=== PATIENT | male | born 1970 | race Caucasian/White ===

== ENCOUNTER 2017-01-17 12:39 | Emergency (ER) | payer SELFPAY ==
[~2017-01-17] VITALS: Ht 177.8 cm; Wt 113.4 kg
[~2017-01-17 12:39] MED LIST: DICL50TA4 PO; HYDR-229 PO
[2017-01-17] MEDS ORDERED: fentaNYL INJECTION 100 MCG/2 ML AMP ONE ×2 (12:42→16:05)
--- OUTSIDE RECORDS SUMMARY | 2017-01-17 12:43 | XMS REPORT ---
Author MINNA Jimenez [facility] eClinicalWorks Address Unknown Phone Unavailable Care Team Providers Care Capital Markets Specialist Name Role Phone MINNA CLAYTON CP Unavailable Allergies, Adverse Reactions, Alerts Substance Reaction Event Type N.K.D.A. 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 Assessment Routine adult health maintenance Z00.00 Active Assessment Elevated blood pressure reading without diagnosis of hypertension R03.0 Active Medications Medication Code System Code Instructions Start Date End Date Status Dosage PredniSONE [facility] [address]-61 20 MG Orally Once a day Dec 09, 2014 Dec 14, 2014 1 tablet with food or milk Procedures Procedure Coding System Code Date Office Visit, Est Pt., Level 4 CPT-4 66656 Dec 09, 2014 Vital Signs Date/Time: Dec 09, 2014 Temperature 98.3 F Weight 252.7 lbs Height 69 in BMI 37.31 Index Blood Pressure Diastolic 84 mmHg Blood Pressure Systolic 152 mmHg Cardiac Monitoring Heart Rate 76 bpm Results No Known Results Summary Purpose eClinicalWorks Submission
[2017-01-17] MEDS ORDERED: NS IV 500 ML 500 ML IV ONE (12:44)
--- OUTSIDE RECORDS SUMMARY | 2017-01-17 12:44 | XMS REPORT ---
Author MINNA Jimenez [facility] eClinicalWorks Address Unknown Phone Unavailable Care Team Providers Care Tong Carrier Name Role Phone MINNA CLAYTON CP Unavailable Allergies, Adverse Reactions, Alerts Substance Reaction Event Type N.K.D.A. 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 Assessment Skin rash R21 Active Medications Medication Code System Code Instructions Start Date End Date Status Dosage Triamcinolone Acetonide [facility] [address]-22 0.1 % Externally Twice a day Jan 08, 2015 1 application to affected area Nystatin [facility] [address]-41 218578 UNIT/GM Externally Twice a day Jan 08, 2015 Feb 05, 2015 1 application to affected area Procedures Procedure Coding System Code Date Office Visit, Est Pt., Level 3 CPT-4 28890 Jan 08, 2015 Vital Signs Date/Time: Jan 08, 2015 Temperature 97.6 F Weight 254.3 lbs Height 69 in BMI 37.55 Index Blood Pressure Diastolic 90 mmHg Blood Pressure Systolic 124 mmHg Cardiac Monitoring Heart Rate 72 bpm Results No Known Results Summary Purpose eClinicalWorks Submission
--- OUTSIDE RECORDS SUMMARY | 2017-01-17 12:44 | XMS REPORT ---
Author Author Augustine Mederos [facility] Address [address] [facility] [address], [place] [id number] Care Team Providers Care Audio Visual Director Name Role Phone Augustine Mederos PCP Unavailable Allergies and Adverse Reactions Name Reaction Notes NO KNOWN DRUG ALLERGIES Plan of Treatment Planned Activity Comments Planned Date Planned Time Plan/Goal Semen analysis, presence and motility of sperm 08/24/2016 12:00 AM Medications Not available. Problem List Description Status Onset Consultation for sterilization Active 06/15/2016 Vital Signs Date Time BP-Sys(mm[Hg] BP-Brenda(mm[Hg]) HR(bpm) RR(rpm) Temp WT HT HC BMI BSA BMI Percentile O2 Sat(%) 08/24/2016 11:36:00 AM 250 lbs 69 in 36.92 kg/m2 2.35 m2 06/15/2016 8:32:00 AM 132 mmHg 92 mmHg 64 bpm 16 rpm 97.3 F 250 lbs 69 in 36.9182 kg/m 2.3496 m 97 % 01/01/2015 10:30:00 AM 250 lbs 69 in 36.92 kg/m2 2.35 m2 Social History Name Description Comments Tobacco Never smoker Alcohol Current - status unknown Caffeine Current every day History of Procedures Date Ordered Description Order Status 06/15/2016 10:23 AM URINALYSIS AUTO W/O SCOPE Reviewed Results Summary Date and Description Results 06/15/2016 12:00 AM Clarity Ur CLEAR Color Ur ---- Glucose Ur-sCnc -VE Bilirub Ur Ql Strip -VE Ketones Ur Ql Strip -VE Sp Gr Ur Qn 1015 Hgb Ur Ql Strip -VE pH Ur-LsCnc 6.0 Prot Ur Ql Strip -VE Urobilinogen Ur-mCnc -VE Nitrite Ur Ql Strip - VE WBC Est Ur Ql Strip -VE 06/15/2016 10:23 AM Clarity Ur CLEAR Color Ur ---- Glucose Ur-sCnc -VE Bilirub Ur Ql Strip -VE Ketones Ur Ql Strip -VE Sp Gr Ur Qn 1015 Hgb Ur Ql Strip -VE pH Ur-LsCnc 6.0 Prot Ur Ql Strip -VE Urobilinogen Ur-mCnc -VE Nitrite Ur Ql Strip - VE WBC Est Ur Ql Strip -VE History Of Immunizations Not available. History of Past Illness Name Date of Onset Comments HEADACHES Kidney stone Consultation for sterilization 06/15/2016 Consultation for sterilization Jun 15 2016 8:36AM Consultation for sterilization Jun 30 2016 2:21PM Vasectomy evaluation Aug 24 2016 11:43AM Payers Not available. History of Encounters Visit Date Visit Type Provider 08/24/2016 Office visit V Mary Mederos MD 07/19/2016 Surgery V Mary Mederos MD 06/15/2016 Office visit V Mary Mederos MD 01/01/2015 Office visit V Mary Mederos MD
--- OUTSIDE RECORDS SUMMARY | 2017-01-17 12:44 | XMS REPORT ---
Author Author Augustine Mederos [facility] Address [address] [facility] [address] [place], [place] [id number] Care Team Providers Care Sexual Assault Counsellor Name Role Phone Augustine Mederos PCP Unavailable Allergies and Adverse Reactions Name Reaction Notes NO KNOWN DRUG ALLERGIES Plan of Treatment Planned Activity Comments Planned Date Planned Time Plan/Goal Semen analysis, presence and motility of sperm 08/24/2016 12:00 AM Medications Not available. Problem List Description Status Onset Consultation for sterilization Active 06/15/2016 Encounter for postvasectomy sperm count Active 08/24/2016 Painful ejaculation Active 08/24/2016 Vital Signs Date Time BP-Sys(mm[Hg] BP-Brenda(mm[Hg]) HR(bpm) [...] HEADACHES Kidney stone Consultation for sterilization 06/15/2016 Encounter for postvasectomy sperm count 08/24/2016 Painful ejaculation 08/24/2016 Consultation for sterilization Jun 15 2016 8:36AM Consultation for sterilization Jun 30 2016 2:21PM Vasectomy evaluation Aug 24 2016 11:43AM Encounter for postvasectomy sperm count Aug 24 2016 11:38AM Painful ejaculation Aug 24 2016 11:38AM Payers Not available. History of Encounters Visit Date Visit Type Provider 08/24/2016 Office visit V Mary Mederos MD 07/19/2016 Surgery V Mary Mederos MD 06/15/2016 Office visit V Mary Mederos MD 01/01/2015 Office visit V Mary Mederos MD
--- OUTSIDE RECORDS SUMMARY | 2017-01-17 12:44 | XMS REPORT ---
Author Author Augustine Mederos [facility] Address [address] [facility] [address] [place], [place] [id number] Care Team Providers Care Lime Sludge Kiln Operator Name Role Phone Augustine Mederos PCP Unavailable Allergies and Adverse Reactions Name Reaction Notes NO KNOWN DRUG ALLERGIES Plan of Treatment Planned Activity Comments Planned Date Planned Time Plan/Goal Semen analysis, presence and motility of sperm 08/24/2016 12:00 AM Medications Not available. Problem List Description Status Onset Consultation for sterilization Active 06/15/2016 Encounter for postvasectomy sperm count Active 08/24/2016 Painful ejaculation Active 08/24/2016 Pain with ejaculation Active 09/08/2016 Vital Signs Date Time BP-Sys(mm[Hg] BP-Brenda(mm[Hg]) HR(bpm) RR(rpm) Temp WT HT HC BMI BSA BMI Percentile O2 Sat(%) 09/08/2016 10:49:00 AM 130 mmHg 88 mmHg 61 bpm 16 rpm 97.3 F 255 lbs 69 in 37.66 kg/m2 2.37 m2 97 % 08/24/2016 11:36:00 AM 250 lbs 69 in 36.9182 kg/m 2.3496 m 06/15/2016 8:32:00 AM 132 mmHg 92 mmHg 64 bpm 16 rpm 97.3 F 250 lbs 69 in 36.92 kg/m2 2.35 m2 97 % 01/01/2015 10:30:00 AM 250 lbs 69 in 36.9182 kg/m 2.3496 m Social History Name Description Comments Tobacco Never [...] postvasectomy sperm count 08/24/2016 Painful ejaculation 08/24/2016 Pain with ejaculation 09/08/2016 Consultation for sterilization Jun 15 2016 8:36AM Consultation for sterilization Jun 30 2016 2:21PM Vasectomy evaluation Aug 24 2016 11:43AM Encounter for postvasectomy sperm count Aug 24 2016 11:38AM Painful ejaculation Aug 24 2016 11:38AM Pain with ejaculation Sep 08 2016 10:52AM Encounter for postvasectomy sperm count Sep 08 2016 10:52AM Payers Not available. History of Encounters Visit Date Visit Type Provider 09/08/2016 Office visit V Mary Mederos MD 08/24/2016 Office visit V Mary Mederos MD 07/19/2016 Surgery V Mary Mederos MD 06/15/2016 Office visit V Mary Mederos MD 01/01/2015 Office visit V Mary Mederos MD
--- OUTSIDE RECORDS SUMMARY | 2017-01-17 12:44 | XMS REPORT ---
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
--- OUTSIDE RECORDS SUMMARY | 2017-01-17 12:44 | XMS REPORT ---
Author Author Augustine Mederos Organization [facility] Address [address] [facility] [address] [place], [place] [id number] Care Team Providers Care Physical Optics Teacher Name Role Phone Augustine Mederos PCP Unavailable Allergies and Adverse Reactions Name Reaction Notes NO KNOWN DRUG ALLERGIES Plan of Treatment Not available. Medications Not available. Problem List Description Status Onset Consultation for sterilization Active 06/15/2016 Vital Signs Date Time BP-Sys(mm[Hg] BP-Brenda(mm[Hg]) HR(bpm) RR(rpm) Temp WT HT HC BMI BSA BMI Percentile O2 Sat(%) 06/15/2016 8:32:00 AM 132 mmHg 92 mmHg 64 bpm 16 rpm 97.3 F 250 lbs 69 in 36.92 kg/m2 2.35 m2 97 % 01/01/2015 10:30:00 AM 250 lbs 69 in 36.92 kg/m2 2.3496 m Social History Name Description Comments Tobacco Never smoker Alcohol Current - status unknown Caffeine Current every day History of Procedures Date Ordered Description Order Status 06/15/2016 10:23 AM URINALYSIS AUTO W/O SCOPE Reviewed Results Summary Data and Description Results 06/15/2016 10:23 AM Clarity Ur CLEAR Color [...] Consultation for sterilization Jun 15 2016 8:36AM Payers Not available. History of Encounters Visit Date Visit Type Provider 06/15/2016 Office visit Augustine Mederos MD 01/01/2015 Office visit Augustine Mederos MD
--- OUTSIDE RECORDS SUMMARY | 2017-01-17 12:44 | XMS REPORT ---
Author Author Augustine Mederos Organization [facility] Address [address] [facility] [address] [place], [place] [phone] Care Team Providers Care Surveillance Operator Name Role Phone Augustine Mederos PCP [...] Consultation for sterilization Jun 30 2016 2:21PM Payers Not available. History of Encounters Visit Date Visit Type Provider 06/15/2016 Office visit V Mary Mederos MD 01/01/2015 Office visit V Mary Mederos MD
--- OUTSIDE RECORDS SUMMARY | 2017-01-17 12:44 | XMS REPORT ---
Author Author Augustine Mederos Organization [facility] Address [address] [facility] [address] [place], [place] [id number] Care Team Providers Care Meat Selector Name Role Phone Augustine Mederos PCP Unavailable [...]
--- OUTSIDE RECORDS SUMMARY | 2017-01-17 12:44 | XMS REPORT ---
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
[2017-01-17] MEDS ORDERED: fentaNYL INJECTION 100 MCG/2 ML AMP IM ONE (12:45)
--- OUTSIDE RECORDS SUMMARY | 2017-01-17 12:45 | XMS REPORT | Continuity of Care Document ---
Author Author [facility] Address Unknown Phone Unavailable Allergies Active Description Code Type Severity Reaction Onset Reported/Identified Relationship to Patient Clinical Status Yes No Known Drug Allergies [id number] Drug Allergy Mild N/A 08/02/2008 Medications Problems Date Dx Coded Attending Type Code Diagnosis Diagnosed By 12/29/2009 Ot 592.1 12/29/2009 Ot 788.0 12/29/2009 Ot 789.09 07/22/2010 719.41 PAIN IN JOINT INVOLVING SHOULDER REGION 07/22/2010 729.5 PAIN IN LIMB 07/22/2010 923.03 CONTUSION OF UPPER ARM 07/22/2010 JOSHUA CORDOBA DO 719.41 PAIN IN JOINT INVOLVING SHOULDER REGION 07/22/2010 JOSHUA CORDOBA DO 729.5 PAIN IN LIMB 07/22/2010 JOSHUA CORDOBA DO 923.03 CONTUSION OF UPPER ARM 07/22/2010 CHERIE CORONEL APRN 719.41 PAIN IN JOINT INVOLVING SHOULDER REGION 07/22/2010 CHERIE CORONEL APRN L 729.5 PAIN IN LIMB 07/22/2010 CHERIE CORONEL APRN L 923.03 CONTUSION OF UPPER ARM 11/22/2010 Ot 368.2 DIPLOPIA 11/22/2010 Ot 787.02 NAUSEA ALONE 07/29/2011 530.81 ESOPHAGEAL REFLUX 07/29/2011 553.3 DIAPHRAGMATIC HERNIA WITHOUT OBSTRUCTION OR GANGRENE 07/29/2011 709.9 UNSPECIFIED DISORDER OF SKIN AND SUBCUTANEOUS TISSUE 07/29/2011 JOSHUA CORDOBA DO 530.81 ESOPHAGEAL REFLUX 07/29/2011 JOSHUA CORDOBA DO K 553.3 DIAPHRAGMATIC HERNIA WITHOUT OBSTRUCTION OR GANGRENE 07/29/2011 JOSHUA CORDOBA DO 709.9 UNSPECIFIED DISORDER OF SKIN AND SUBCUTANEOUS TISSUE 07/29/2011 CHERIE CORONEL APRN 530.81 ESOPHAGEAL REFLUX 07/29/2011 CHERIE CORONEL APRN 553.3 DIAPHRAGMATIC HERNIA WITHOUT OBSTRUCTION OR GANGRENE 07/29/2011 JUJU CORONEL APRNA L 709.9 UNSPECIFIED DISORDER OF SKIN AND SUBCUTANEOUS TISSUE 11/01/2012 111.0 PITYRIASIS VERSICOLOR 11/01/2012 796.2 ELEVATED BLOOD PRESSURE READING WITHOUT DIAGNOSIS OF HYPERTENSION 11/01/2012 CORDOBA JOSHUA K 111.0 PITYRIASIS VERSICOLOR 11/01/2012 BERYL ORTIZJOSHUA K 796.2 ELEVATED BLOOD PRESSURE READING WITHOUT DIAGNOSIS OF HYPERTENSION 11/01/2012 JUJU CORONEL APRNA L 111.0 PITYRIASIS VERSICOLOR 11/01/2012 JUJU CORONEL APRNA L 796.2 ELEVATED BLOOD PRESSURE READING WITHOUT DIAGNOSIS OF HYPERTENSION 12/15/2012 JOSHUA CORDOBA DO 607.89 OTHER SPECIFIED DISORDERS OF PENIS 12/15/2012 HUILei MINERAL ECONOMISTCHERIE Ferrell 607.89 OTHER SPECIFIED DISORDERS OF PENIS 01/21/2014 HUILei MINERAL ECONOMISTCHARANJITCHERIE L 708.9 UNSPECIFIED URTICARIA 03/15/2014 LILIAN LEW DO Ot 845.00 SPRAIN OF ANKLE NOS 03/15/2014 LILIAN LEW DO Ot 959.7 LOWER LEG INJURY NOS 03/15/2014 LILIAN LEW DO Ot E000.8 OTHER EXTERNAL CAUSE STATUS 03/15/2014 LILIAN LEW DO Ot E849.0 ACCIDENT IN HOME 03/15/2014 LILIAN LEW DO Ot E883.9 FALL INTO OTHER HOLE Procedures Code Description [place] [address] ROUTINE VENIPUNCTURE 12/15/2012 35741 [facility]PHILLIS-[facility] 12/15/2012 22022 GC/CHLAM URINE (STATE) 12/15/2012 Results Encounters ACCT No. Visit Date/Time Discharge Status Pt. Type Provider Facility Loc./Unit Complaint [id number] 01/21/2014 08:35:00 01/21/2014 23: 59:59 CLS Outpatient HUILei MINERAL ECONOMISTCHERIE Ferrell [id number] 12/15/2012 13:36:00 12/15/2012 23: 59:59 CLS Outpatient JOSHUA CORDOBA DO [id number] 11/01/2012 16:32:00 Document Registration [id number] 03/15/2014 04:28:00 2014 05:23:00 DIS Emergency LILIAN LEW DO [facility] ER [id number] 11/21/2010 20:03:00 Document Registration [id number] 12/29/2009 16:35:00 Document Registration [id number] 09/08/2016 11:38:42 09/08/2016 23: 59:59 CLS Outpatient Rosa M, V S [id number] 08/24/2016 12:18:56 08/24/2016 23: 59:59 CLS Outpatient Rosa M, V S [id number] 07/20/2016 12:02:41 07/20/2016 23: 59:59 CLS Outpatient Rosa M, V S [id number] 06/15/2016 09:24:05 06/15/2016 23: 59:59 CLS Outpatient Rosa M, V S [id number] 01/01/2015 10:57:03 01/01/2015 23: 59:59 CLS Outpatient Rosa M, V S
--- NOTE | 2017-01-17 12:51 | ED Upper Extremity ---
General Stated Complaint: LEFT THUMB INJURY Source: patient, spouse Exam Limitations: no limitations History of Present Illness Time seen by provider: 12:44 Initial Comments Patient has ER by private conveyance with a chief complaint that about 20 minutes ago he smashed his left thumb against the wood splitter. He's previously injured this hand a long time ago with a laceration stab to the forearm and cut the thumb nail off with a machete on accident. These wounds long since healed. He has had a tetanus shot in the last 5 years. He has not had anything for pain yet. He did not pass out. He still has sensation all the way down to his last knuckle of his thumb. Allergies and Home Medications Allergies Coded Allergies: No Known Drug Allergies (Unverified , 08/02/08) Home Medications Diclofenac Potassium 50 Mg Tablet, 50 MG PO Q8H PRN for ankle pain, #30 Ref 0 Prescribed by: LILIAN LEW on 03/15/14 0516 Hydrocodone Bit/Acetaminophen 1 Each Tablet, 1 EACH PO Q 4 - 6 HRS PRN, #10 Ref 0 Prescribed by: SHERMAN RANDALL on 12/29/092047 Constitutional: No chills, No diaphoresis, No fever, No malaise EENTM: No ear discharge, No ear pain Respiratory: No cough, No short of breath Cardiovascular: No chest pain, No palpitations Gastrointestinal: No abdominal pain, No constipation, No diarrhea Genitourinary: No discharge, No dysuria Musculoskeletal: see HPI Skin: see HPI Past Kzdnmnk-Uradkv-Vmbvtx Hx Reproductive System Hx Reproductive Disorders: No Sexually Transmitted Disease: No Physical Exam Vital Signs Vital Sign - Last 12Hours 01/17/17 12:40 Temp 97.4 Pulse 84 Resp 18 B/P (MAP) 137/91 (106) Pulse Ox 99 Capillary Refill : General Appearance: WD/WN, moderate distress HEENT: PERRL/EOMI, pharynx normal Cardiovascular: regular rate, rhythm, no edema Gastrointestinal: non tender, soft Shoulder: normal inspection, no evidence of injury Elbow/Forearm: normal inspection, no evidence of injury Wrist: Yes normal inspection, Yes no evidence of injury Hand: Left, nail injury, swelling (crush injury to the distal phalanx of the left thumb) Neurologic/Tendon: normal motor functions, responds to pain, other (sensation to distal interphalangeal joint. Tendon is difficult to assess and probably disrupted given his inability to move that distal phalanx and the extent of the injury.) Neurologic/Psychiatric: alert, oriented x 3 Skin: normal color, warm/dry Progress/Results/Core Measures Results/Orders Lab Results Laboratory Tests Test 01/17/17 14:10 Range/Units White Blood Count 10.8 4.3-11.0 10^3/uL Red Blood Count 4.94 4.35-5.85 10^6/uL Hemoglobin 14.4 13.3-17.7 G/DL Hematocrit 42 40-54 % Mean Corpuscular Volume 85 80-99 FL Mean Corpuscular Hemoglobin 29 25-34 PG Mean Corpuscular Hemoglobin Concent 34 32-36 G/DL Red Cell Distribution Width 12.7 10.0-14.5 % Platelet Count 213 130-400 10^3/uL Mean Platelet Volume 12.1 H 7.4-10.4 FL Neutrophils (%) (Auto) 77 H 42-75 % Lymphocytes (%) (Auto) 15 12-44 % Monocytes (%) (Auto) 6 0-12 % Eosinophils (%) (Auto) 1 0-10 % Basophils (%) (Auto) 1 0-10 % Neutrophils # (Auto) 8.3 H 1.8-7.8 X 10^3 Lymphocytes # (Auto) 1.6 1.0-4.0 X 10^3 Monocytes # (Auto) 0.7 0.0-1.0 X 10^3 Eosinophils # (Auto) 0.1 0.0-0.3 10^3/uL Basophils # (Auto) 0.1 0.0-0.1 10^3/uL Sodium Level 140 135-145 MMOL/L Potassium Level 4.2 3.6-5.0 MMOL/L Chloride Level 109 H 98-107 MMOL/L Carbon Dioxide Level 24 21-32 MMOL/L Anion Gap 7 5-14 MMOL/L Blood Urea Nitrogen 12 7-18 MG/DL Creatinine 1.28 0.60-1.30 MG/DL Estimat Glomerular Filtration Rate > 60 BUN/Creatinine Ratio 9 Glucose Level 114 H 70-105 MG/DL Calcium Level 8.8 8.5-10.1 MG/DL Total Bilirubin 0.4 0.1-1.0 MG/DL Aspartate Amino Transf (AST/SGOT) 23 5-34 U/L Alanine Aminotransferase (ALT/SGPT) 32 0-55 U/L Alkaline Phosphatase 69 40-136 U/L Total Protein 6.9 6.4-8.2 GM/DL Albumin 4.1 3.2-4.5 GM/DL My Orders Orders - GREGG CELIS Luh Fentanyl Injection (Sublimaze Injection (01/17/17 12:42) Cbc With Automated Diff (01/17/17 12:44) Comprehensive Metabolic Panel (01/17/17 12:44) Finger(S) (01/17/17 12:44) Saline Lock/Iv-Start (01/17/17 12:44) Ns Iv 500 Ml (Sodium Chloride 0.9%) (01/17/17 12:44) Fentanyl Injection (Sublimaze Injection (01/17/17 12:45) Fentanyl Injection (Sublimaze Injection (01/17/17 13:15) Fentanyl Injection (Sublimaze Injection (01/17/17 13:15) Cefazolin Injection (Ancef Injection) (01/17/17 14:30) Medications Given in ED Current Medications Medications Dose Ordered Sig/Benton Route Start Time Stop Time Status Last Admin Dose Admin Cefazolin Sodium 1000 mg/Sodium Chloride 50 ml @ 100 mls/hr ONCE ONCE IV 01/17/17 14:30 01/17/17 14:59 DC 01/17/17 15:00 100 MLS/HR Fentanyl Citrate 100 mcg ONCE ONCE IVP 01/17/17 13:15 01/17/17 13:17 DC 01/17/17 13:28 100 MCG Fentanyl Citrate 100 mcg STK-MED ONCE .ROUTE 01/17/17 12:42 01/17/17 12:45 DC 01/17/17 12:46 50 MCG Sodium Chloride 500 ml @ 0 mls/hr Q0M ONCE IV 01/17/17 12:44 01/17/17 12:46 DC 01/17/17 13:41 500 MLS/HR Vital Signs/I&O Vital Sign - Last 12Hours 01/17/17 12:40 Temp 97.4 Pulse 84 Resp 18 B/P (MAP) 137/91 (106) Pulse Ox 99 Progress Note : Time: 12:50 Progress Note Hand x-ray pain management, fluids and antibiotics. Diagnostic Imaging Diagonstic Imaging: Xray Plain Films/CT/US/NM/MRI: hand (left) Comments Distal phalanx of the left first thumb with comminuted fracture longitudinally of the distal portion and comminuted fracture through the articular surface of the proximal portion. Nondisplaced. Reviewed: Reviewed by Me Consults Consults : Consulting Physician: DONTA JAMES MD Consults Notes Discussed imaging and findings and he says he will come see the patient since he 's done in surgery. 1530: Dr. JAMES has now examined the patient, imaging and labs and will get the patient in with Dr. WALDROP tomorrow morning at 10 and nothing by mouth status to do hand surgery. He would like us to give him some kind of narcotic to control his pain and do a good washout. He agrees with the Anc at this time. Departure Impression Impression: Primary Impression: Crushing injury of thumb, left Qualified Codes: S67.02XA - Crushing injury of left thumb, initial encounter Additional Impression: Fracture of thumb, left, open Qualified Codes: S62.525B - Nondisplaced fracture of distal phalanx of left thumb, initial encounter for open fracture Disposition: 01 HOME, SELF-CARE Condition: Improved Departure-Patient Inst. Decision time for Depature: 15:57 Referrals: NO,LOCAL PHYSICIAN (PCP/Family) Primary Care Physician Patient Instructions: Finger Fracture (DC) Add. Discharge Instructions: Go home get some rest drink plenty fluids and do not eat or drink after midnight tonight. Plan on showing up at [address] [place] [address] [address] in [place] with Dr. WALDROP by 10 AM. The hand surgeon will take care of your thumb at that time. If you're having pain you may take one to 2 tablets of oxycodone every 6 hours as needed. Oxycodone will cause constipation so you should probably oyster picker some MiraLAX at the same time to help keep your bowels moving use one capful in a glass of water daily or more frequently if you become constipated. Oxycodone can cause drowsiness as well as well so no driving or operating machinery. Keep a gauze dressing applied around your thumb at all times and change it as needed for soiling or at least daily. Scripts Oxycodone HCl/Acetaminophen (Oxycodone-Acetaminophen 10-325) 1 Each Tablet 1-2 EACH PO Q6H Y for BREAKTHROUGH PAIN for 7 Days, #30 TAB 0 Refills Prov: GREGG CELIS 01/17/17 Work/School Note: Work Release Form Date Seen in the Emergency Department: Jan 17, 2017 Return to Work: Jan 19, 2017 Restrictions: No Restrictions Copy Copies To 1: CLINT WALDROP DO Copies To 2: DONTA JAMES MD, TITUS J Jan 17, 2017 12:50
[2017-01-17] MEDS ORDERED: fentaNYL INJECTION 100 MCG/2 ML AMP IVP ONE ×3 (13:15→16:15)
[2017-01-17 14:17] LABS: BASOPHILS # (AUTO) 0.1 10^3/uL (0.0-0.1); BASOPHILS % (AUTO) 1 % (0-10); EOSINOPHILS # (AUTO) 0.1 10^3/uL (0.0-0.3); EOSINOPHILS % (AUTO) 1 % (0-10); LYMPHOCYTES # (AUTO) 1.6 X 10^3 (1.0-4.0); LYMPHOCYTES % (AUTO) 15 % (12-44); MEAN CORPUSCULAR HEMOGLOBIN 29 PG (25-34); MEAN CORPUSCULAR HGB CONC 34 G/DL (32-36); MEAN CORPUSCULAR VOLUME 85 FL (80-99); MEAN PLATELET VOLUME 12.1 FL (7.4-10.4); MONOCYTES # (AUTO) 0.7 X 10^3 (0.0-1.0); MONOCYTES % (AUTO) 6 % (0-12); NEUTROPHILS # (AUTO) 8.3 X 10^3 (1.8-7.8); NEUTROPHILS % (AUTO) 77 % (42-75); PLATELET COUNT 213 10^3/uL (130-400); RED BLOOD COUNT 4.94 10^6/uL (4.35-5.85); RED CELL DISTRIBUTION WIDTH 12.7 % (10.0-14.5); WHITE BLOOD COUNT 10.8 10^3/uL (4.3-11.0)
[2017-01-17] MEDS ORDERED: ceFAZolin INJECTION 1,000 MG in NS (IVPB) 50 ML IV ONE (14:30)
[2017-01-17 14:38] LABS: ALANINE AMINOTRANSFERASE 32 U/L (0-55); ALBUMIN 4.1 GM/DL (3.2-4.5); ANION GAP 7 MMOL/L (5-14); ASPARTATE AMINO TRANSFERASE 23 U/L (5-34); BILIRUBIN,TOTAL 0.4 MG/DL (0.1-1.0); BLOOD UREA NITROGEN 12 MG/DL (7-18); BUN/CREATININE RATIO 9; CALCIUM 8.8 MG/DL (8.5-10.1); CARBON DIOXIDE 24 MMOL/L (21-32); CHLORIDE 109 MMOL/L (98-107); CREATININE SERUM 1.28 MG/DL (0.60-1.30); GFR ESTIMATED > 60; GLUCOSE 114 MG/DL (70-105); POTASSIUM 4.2 MMOL/L (3.6-5.0); SODIUM 140 MMOL/L (135-145); TOTAL PROTEIN 6.9 GM/DL (6.4-8.2)
--- NOTE | 2017-01-17 15:53 | Diagnostic Imaging Report ---
Three views of the fingers. INDICATION: Thumb caught in a wood splitter. FINDINGS: There is comminuted fracture with intra-articular extension involving the distal phalanx of the thumb. There is displacement in a dorsal direction involving the base of the distal phalanx seen on the lateral projection. No radiopaque foreign body seen. IMPRESSION: Comminuted fracture involving the distal phalanx of the thumb extending to the interphalangeal joint. There is a dorsally displaced fragment along the base of the distal phalanx. Dictated by: Dictated on workstation # [id number]
[2017-01-17] MEDS ORDERED: OXYC-465 PO (16:00)
[2017-01-17 16:15] VITALS: BP 137/91
== END 2017-01-17 16:15 | disposition home or self-care (01) ==
LOC: EDUNIT# 12:39 → ER 12:40
DX: S62.525B Nondisplaced fracture of distal phalanx of left thumb, initial encounter for open fracture (principal); S62.515B Nondisplaced fracture of proximal phalanx of left thumb, initial encounter for open fracture; W31.2XXA Contact with powered woodworking and forming machines, initial encounter
CPT/HCPCS: 36415; 73140; 80053; 85025

== ENCOUNTER 2018-10-16 21:13 | Emergency (ER) | payer SELFPAY ==
[~2018-10-16] VITALS: Ht 177.8 cm; Wt 117.9 kg
[~2018-10-16 21:13] MED LIST changes: +OXYC-465 PO
[2018-10-16] MEDS ORDERED: NS IV 1000 ML 1,000 ML ONE (21:18)
[2018-10-16] MEDS ORDERED: ACETAMINOPHEN 500 MG TAB (TYLENOL) ONE (21:19)
[2018-10-16] MEDS ORDERED: NS IV 1000 ML 1,000 ML IV SCH (21:27)
[2018-10-16] MEDS ORDERED: ACETAMINOPHEN 500 MG TAB (TYLENOL) PO ONE (21:30)
[2018-10-16 21:45] LABS: BASOPHILS % (AUTO) 0 % (0-10); EOSINOPHILS # (AUTO) 0.3 10^3/uL (0.0-0.3); EOSINOPHILS % (AUTO) 2 % (0-10); HEMATOCRIT 43 % (40-54); LYMPHOCYTES # (AUTO) 1.1 X 10^3 (1.0-4.0); LYMPHOCYTES % (AUTO) 8 % (12-44); MEAN CORPUSCULAR HEMOGLOBIN 29 PG (25-34); MEAN CORPUSCULAR HGB CONC 35 G/DL (32-36); MEAN CORPUSCULAR VOLUME 83 FL (80-99); MEAN PLATELET VOLUME 12.4 FL (7.4-10.4); MONOCYTES # (AUTO) 1.6 X 10^3 (0.0-1.0); MONOCYTES % (AUTO) 12 % (0-12); NEUTROPHILS # (AUTO) 10.8 X 10^3 (1.8-7.8); NEUTROPHILS % (AUTO) 78 % (42-75); PLATELET COUNT 217 10^3/uL (130-400); RED CELL DISTRIBUTION WIDTH 12.4 % (10.0-14.5); WHITE BLOOD COUNT 13.8 10^3/uL (4.3-11.0)
[2018-10-16 21:58] LABS: ALBUMIN 4.4 GM/DL (3.2-4.5); BILIRUBIN,TOTAL 0.5 MG/DL (0.1-1.0); CALCIUM 9.3 MG/DL (8.5-10.1); CREATININE SERUM 1.36 MG/DL (0.60-1.30); POTASSIUM 3.9 MMOL/L (3.6-5.0); TOTAL PROTEIN 7.8 GM/DL (6.4-8.2)
--- NOTE | 2018-10-16 22:00 | Diagnostic Imaging Report ---
INDICATION: Short of air and cough FINDINGS: Upright chest shows normal heart size and vascularity. The lungs are clear. There is no effusion or pneumothorax. IMPRESSION: No acute abnormality is seen. Dictated by: Dictated on workstation # [id number]
[2018-10-16] MEDS ORDERED: LACTATED RINGERS 1,000 ML IV ONE (22:23)
[2018-10-16 22:33] LABS: BILIRUBIN,URINE NEGATIVE (NEGATIVE); CLARITY,URINE CLEAR; COLOR,URINE AMBER; GLUCOSE, URINE (UA) NEGATIVE (NEGATIVE); KETONES,URINE NEGATIVE (NEGATIVE); LEUKOCYTE ESTERASE ,URINE 1+ (NEGATIVE); NITRITE,URINE NEGATIVE (NEGATIVE); PH,URINE 6 (5-9); PROTEIN,URINE 2+ (NEGATIVE); UROBILINOGEN,URINE NORMAL (NORMAL)
[2018-10-16 22:44] LABS: BACTERIA,URINE NEGATIVE /HPF; RBC,URINE RARE /HPF; SQUAMOUS EPITHELIAL CELL,UR RARE /HPF; WBC,URINE RARE /HPF
--- NOTE | 2018-10-16 22:53 | ED General ---
General Chief Complaint: Fever-Adult/Adol Stated Complaint: HEADACHE,FEVER,TREMORS, LOSS OF VISION Nursing Triage Note: PT AMB TO RM 8 WITH COMPLAINT OF FEVER, HEADACHE, FOR THREE DAYS. Nursing Sepsis Screen: No Definite Risk Source of Information: Patient, Family Exam Limitations: No Limitations History of Present Illness Date Seen by Provider: Oct 16, 2018 Time Seen by Provider: 21:18 Initial Comments This 48-year-old gentleman presents to the emergency room with fever, chills, cough, and vomiting for the past 3 days. His significant other states he had sputum that appeared bloody and frothy today. She had given him aspirin 650 mg, ibuprofen, and essential oils but he continued to feel terrible and have a temperature. Temperature at home was 101.2. Temperature here was 103.4. Patient also complains of a blurry vision when his fever is high. Allergies and Home Medications Allergies Coded Allergies: No Known Drug Allergies (Unverified , 08/02/08) Home Medications Azithromycin 250 Mg Tablet, 250 MG PO DAILY Prescribed by: AMBER GRISSOM on 10/17/18 044 Diclofenac Potassium 50 Mg Tablet, 50 MG PO Q8H PRN for ankle pain Prescribed by: LILIAN LEW on 03/15/14 0516 Hydrocodone Bit/Acetaminophen 1 Each Tablet, 1 EACH PO Q 4 - 6 HRS PRN Prescribed by: SHERMAN RANDALL on 12/29/092047 Ondansetron 4 Mg Tab.rapdis, 4 MG SL Q4H PRN for NAUSEA/VOMITING Prescribed by: AMBER GRISSOM on 10/17/18 0442 Oxycodone HCl/Acetaminophen 1 Each Tablet, 1-2 EACH PO Q6H PRN for BREAKTHROUGH PAIN Prescribed by: GREGG CELIS on 01/17/17 1600 Patient Home Medication List Home Medication List Reviewed: Yes Review of Systems Review of Systems Constitutional: see HPI EENTM: see HPI Respiratory: see HPI Cardiovascular: no symptoms reported Gastrointestinal: see HPI Genitourinary: no symptoms reported Musculoskeletal: no symptoms reported Skin: no symptoms reported Psychiatric/Neurological: See HPI Hematologic/Lymphatic: No Symptoms Reported Immunological/Allergic: no symptoms reported Past Ztasjwz-Gosyqh-Ycihrw Hx Patient Social History Alcohol Use: Denies Use Recreational Drug Use: No Smoking Status: Never a Smoker Recent Foreign Travel: No Contact w/Someone Who Travel: No Recent Infectious Disease Expo: No Recent Hopitalizations: No Physical Abuse: No Sexual Abuse: No Mistreated: No Fear: No Immunizations Up To Date Tetanus Booster (TDap): Less than 5yrs Past Medical History Surgeries: Yes Respiratory: No Cardiac: No Neurological: No Reproductive Disorders: No Sexually Transmitted Disease: No Gastrointestinal: No Musculoskeletal: Yes Gout Endocrine: No Cancer: No Psychosocial: No Integumentary: No Blood Disorders: No Physical Exam-Suspected Sepsis Physical Exam Vital Signs Vital Signs - First Documented 10/16/18 21:19 Temp 103.4 Pulse 106 Resp 20 B/P (MAP) 129/88 (102) Pulse Ox 96 O2 Delivery Room Air Capillary Refill : Less Than 3 Seconds Blood Pressure Mean: 102 Height, Weight, BMI Height: 5'10.00" Weight: 260lbs. oz. 117.279175xi; BMI Method:Stated General Appearance: WD/WN, Moderate Distress, Other (generally ill-appearing) HEENT: PERRL/EOMI, Normal ENT Inspection, Pharynx Normal Neck: Normal Inspection Respiratory: No Accessory Muscle Use, No Respiratory Distress, Crackles (faint crackles in the bases) Cardiovascular: No Edema, No Murmur, Normal Peripheral Pulses, Tachycardia Gastrointestinal: Normal Bowel Sounds, Non Tender, Soft Extremity: Normal Capillary Refill, Normal Inspection, Non Tender, No Calf Tenderness, No Pedal Edema Neurologic/Psychiatric: Alert, Oriented x3, No Motor/Sensory Deficits, Normal Mood/Affect, pharmacy services representative II-XII Norm as Tested Skin: normal color, warm/dry Focused Exam Lactate Level 10/16/18 21:26: Lactic Acid Level 1.82 Lactic Acid Level Progress/Results/Core Measures Suspected Sepsis Recent Fever Within 48 Hours: No Infection Criteria Present: None New/Unexplained Altered Menta: No Sepsis Screen: No Definite Risk SIRS Temperature:103.4 Pulse: 106 Respiratory Rate: 20 Laboratory Tests 10/16/18 21:26: White Blood Count 13.8H Blood Pressure 129 /88 Mean: 102 10/16/18 21:26: Lactic Acid Level 1.82 Laboratory Tests 10/16/18 21:26: Creatinine 1.36H, INR Comment 1.0, Platelet Count 217, Total Bilirubin 0.5 Results/Orders Lab Results Laboratory Tests Test 10/16/18 21:26 10/16/18 22:24 Range/Units White Blood Count 13.8 H 4.3-11.0 10^3/uL Red Blood Count 5.15 4.35-5.85 10^6/uL Hemoglobin 15.0 13.3-17.7 G/DL Hematocrit 43 40-54 % Mean Corpuscular Volume 83 80-99 FL Mean Corpuscular Hemoglobin 29 25-34 PG Mean Corpuscular Hemoglobin Concent 35 32-36 G/DL Red Cell Distribution Width 12.4 10.0-14.5 % Platelet Count 217 130-400 10^3/uL Mean Platelet Volume 12.4 H 7.4-10.4 FL Neutrophils (%) (Auto) 78 H 42-75 % Lymphocytes (%) (Auto) 8 L 12-44 % Monocytes (%) (Auto) 12 0-12 % Eosinophils (%) (Auto) 2 0-10 % Basophils (%) (Auto) 0 0-10 % Neutrophils # (Auto) 10.8 H 1.8-7.8 X 10^3 Lymphocytes # (Auto) 1.1 1.0-4.0 X 10^3 Monocytes # (Auto) 1.6 H 0.0-1.0 X 10^3 Eosinophils # (Auto) 0.3 0.0-0.3 10^3/uL Basophils # (Auto) 0.0 0.0-0.1 10^3/uL Prothrombin Time 14.0 12.2-14.7 SEC INR Comment 1.0 0.8-1.4 Activated Partial Thromboplast Time 32 24-35 SEC Sodium Level 135 135-145 MMOL/L Potassium Level 3.9 3.6-5.0 MMOL/L Chloride Level 100 98-107 MMOL/L Carbon Dioxide Level 21 21-32 MMOL/L Anion Gap 14 5-14 MMOL/L Blood Urea Nitrogen 11 7-18 MG/DL Creatinine 1.36 H 0.60-1.30 MG/DL Estimat Glomerular Filtration Rate 56 BUN/Creatinine Ratio 8 Glucose Level 154 H 70-105 MG/DL Lactic Acid Level 1.82 0.50-2.00 MMOL/L Calcium Level 9.3 8.5-10.1 MG/DL Corrected Calcium 9.0 8.5-10.1 MG/DL Total Bilirubin 0.5 0.1-1.0 MG/DL Aspartate Amino Transf (AST/SGOT) 25 5-34 U/L Alanine Aminotransferase (ALT/SGPT) 30 0-55 U/L Alkaline Phosphatase 89 40-136 U/L C-Reactive Protein High Sensitivity 5.24 H 0.00-0.50 MG/DL Total Protein 7.8 6.4-8.2 GM/DL Albumin 4.4 3.2-4.5 GM/DL Urine Color SETH H Urine Clarity CLEAR Urine pH 6 5-9 Urine Specific [place] 1.010 L 1.016-1.022 Urine Protein 2+ H NEGATIVE Urine Glucose (UA) NEGATIVE NEGATIVE Urine Ketones NEGATIVE NEGATIVE Urine Nitrite NEGATIVE NEGATIVE Urine Bilirubin NEGATIVE NEGATIVE Urine Urobilinogen NORMAL NORMAL MG/DL Urine Leukocyte Esterase 1+ H NEGATIVE Urine RBC (Auto) 1+ H NEGATIVE Urine RBC RARE /HPF Urine WBC RARE /HPF Urine Squamous Epithelial Cells RARE /HPF Urine Crystals NONE /LPF Urine Bacteria NEGATIVE /HPF Urine Casts NONE /LPF Urine Mucus NEGATIVE /LPF Urine Culture Indicated CULTURE PENDING Micro Results Microbiology 10/16/18 Influenza Types A,B Antigen (KENNEY) - Final, Complete My Orders Orders - AMBER RIBEIRO MD Ns Iv 1000 Ml (Sodium Chloride 0.9%) (10/16/18 21:18) Acetaminophen Tablet (Tylenol Tablet) (10/16/18 21:19) Cbc With Automated Diff (10/16/18 21:27) Comprehensive Metabolic Panel (10/16/18 21:27) Blood Culture (10/16/18 21:27) Sputum Culture (10/16/18 21:27) Urinalysis (10/16/18 21:27) Urine Culture (10/16/18 21:27) Protime With Inr (10/16/18 21:27) Partial Thromboplastin Time (10/16/18 21:27) Chest 1 View, Ap/Pa Only (10/16/18 21:27) Ed Iv/Invasive Line Start (10/16/18 21:27) Ed Iv/Invasive Line Start (10/16/18 21:27) Vital Signs Adult Sepsis Patie Q15M (10/16/18 21:27) O2 (10/16/18 21:27) Remove Rings In Anticipation O (10/16/18 21:27) Lactic Acid Analyzer (10/16/18 21:27) Influenza A And B Antigens (10/16/18 21:27) Ns Iv 1000 Ml (Sodium Chloride 0.9%) (10/16/18 21:27) Acetaminophen Tablet (Tylenol Tablet) (10/16/18 21:30) Hs C Reactive Protein (10/16/18 22:15) Lactated Ringers (Lr 1000 Ml Iv Solution (10/16/18 22:23) Chest Pa/Lat (2 View) (10/16/18 22:23) Ceftriaxone For Iv Use (Rocephin For I (10/16/18 23:00) Azithromycin Injection (Zithromax Inject (10/16/18 23:00) Ondansetron Injection (Zofran Injectio (10/17/18 02:46) Ketorolac Injection (Toradol Injection) (10/17/18 02:47) Medications Given in ED Current Medications Medications Dose Ordered Sig/Benton Route Start Time Stop Time Status Last Admin Dose Admin Acetaminophen 1,000 mg ONCE ONCE PO 10/16/18 21:30 10/16/18 21:31 DC 10/16/18 21:31 1,000 MG Azithromycin 500 mg/Sodium Chloride 250 ml @ 250 mls/hr ONCE ONCE IV 10/16/18 23:00 10/16/18 23:59 DC 10/17/18 00:10 250 MLS/HR Ceftriaxone Sodium 1000 mg/ Sterile Water 10 ml @ 200 mls/hr ONCE ONCE IV 10/16/18 23:00 10/16/18 23:02 DC 10/16/18 23:03 200 MLS/HR Ketorolac Tromethamine 30 mg STK-MED ONCE .ROUTE 10/17/18 02:47 10/17/18 02:56 DC 10/17/18 03:00 30 MG Lactated Ringer's 1,000 ml @ 0 mls/hr Q0M ONCE IV 10/16/18 22:23 10/16/18 22:24 DC 10/16/18 22:27 1,000 MLS/HR Ondansetron HCl 4 mg STK-MED ONCE .ROUTE 10/17/18 02:46 10/17/18 02:55 DC 10/17/18 03:00 4 MG Vital Signs/I&O 10/16/18 10/16/18 10/17/18 10/17/18 21:19 23:00 03:00 04:52 Temp 103.4 100.4 102.5 100.3 Pulse 106 106 90 Resp 20 20 20 B/P (MAP) 129/88 (102) 129/88 133/86 (102) Pulse Ox 96 96 96 O2 Delivery Room Air Room Air 10/17/18 00:00 Intake Total 2009 ml Balance 2009 ml Capillary Refill : Less Than 3 Seconds Blood Pressure Mean: 102 Progress Note #1: Time: 22:51 Progress Note Patient is significantly improved after IV fluids and Tylenol. The single view chest x-ray was read as negative by the radiologist. However, there were faint crackles heard on exam. The single view x-ray was followed by 2 view x-ray after IV hydration. There was questionable infiltrate in the left lower lung and in the right infrahilar region. I am uncertain about possible pneumonia. Discussed options with the patient. Admission as an option but [facility] is on diversion at this time. Patient really does not want to be transferred. I offered as an alternative IV antibiotic therapy and monitoring for a few hours to ensure he is stable before definitively determining disposition. Patient would like to choose that option. Rocephin and azithromycin have been ordered. He is presently receiving a second liter of IV fluid. Progress Note #2: Progress Note Patient was monitored for several hours to ensure no worsening of his condition after antibiotic administration. He completed Rocephin and azithromycin. He was additionally treated with Toradol for fever and Zofran for nausea and vomiting. He was dismissed home in improved condition with return precautions. Diagnostic Imaging Diagonstic Imaging: Xray Plain Films/CT/US/NM/MRI: chest Comments Single view chest x-ray viewed by me and report reviewed. See report below: NAME: GEORGINA ESQUIVEL [facility] REC#: [id number] PT STATUS: REG ER : 1970 PHYSICIAN: AMBER RIBEIRO MD ADMIT DATE: 10/16/18/ER Draft Date of Exam:10/16/18 CHEST 1 VIEW, AP/PA ONLY INDICATION: Short of air and cough FINDINGS: Upright chest shows normal heart size and vascularity. The lungs are clear. There is no effusion or pneumothorax. IMPRESSION: No acute abnormality is seen. Dictated on workstation # [id number] Dict: 10/16/18 2158 Trans: 10/16/182199 [facility] [id number] Interpreted by: DELVIS WADDELL MD Diagonstic Imaging: Xray Plain Films/CT/US/NM/MRI: chest Comments Two-view chest x-ray viewed by me. Report not yet available. There is questionable faint infiltrate in the left lower lobe and in the right infrahilar region. Departure Impression Primary Impression: Flu-like symptoms Additional Impressions: Cough Nausea and vomiting Qualified Codes: R11.2 - Nausea with vomiting, unspecified Disposition: HOME, SELF-CARE Condition: Improved Departure-Patient Inst. Decision time for Depature: 04:37 Referrals: NO,LOCAL PHYSICIAN (PCP/Family) Primary Care Physician Patient Instructions: Fever, Adult (DC) Add. Discharge Instructions: Start with a clear liquid diet and gradually advance your diet with small quantities of bland food as tolerated. Complete your antibiotic as prescribed. Take your next dose this evening. You may use the Zofran (ondansetron) as prescribed for nausea or vomiting. These tablets dissolve under the tongue for rapid acting nausea relief. Return to care if you have worsening symptoms. All discharge instructions reviewed with patient and/or family. Voiced understanding. Scripts Ondansetron (Ondansetron Odt) 4 Mg Tab.rapdis 4 MG SL Q4H PRN for NAUSEA/VOMITING, #10 TAB Prov: AMBER RIBEIRO MD 10/17/18 Azithromycin (Azithromycin) 250 Mg Tablet 250 MG PO DAILY, #4 TAB 0 Refills Prov: AMBER RIBEIRO MD 10/17/18 AMBER RIBEIRO MD Oct 16, 2018 22:52
[2018-10-16] MEDS ORDERED: cefTRIAXone FOR IV USE 1,000 MG in WATER (STERILE) FOR INJECTION 10 ML IV ONE (23:00)
[2018-10-16] MEDS ORDERED: AZITHROMYCIN INJECTION 500 MG in NS (IVPB) 250 ML IV ONE (23:00)
--- NOTE | 2018-10-16 23:00 | NUR ---
ASSUMED PRIMARY NURSE ROLE
--- NOTE | 2018-10-17 02:45 | NUR ---
temp assessed tympanically to be 102.5-provider notified
[2018-10-17] MEDS ORDERED: ONDANSETRON 4 MG/2 ML (SDV) Z0FRAN ONE (02:46)
[2018-10-17] MEDS ORDERED: KETOROLAC 30 MG/ML VIAL ONE (02:47)
--- NOTE | 2018-10-17 03:50 | NUR ---
PT TEMP IS NOW 100.3 TYMPANICALLY
[2018-10-17] MEDS ORDERED: ONDA4TAB11 SL (04:42)
[2018-10-17] MEDS ORDERED: AZIT250T12 PO (04:42)
[2018-10-17 04:52] VITALS: BP 133/86
--- NOTE | 2018-10-17 06:22 | Diagnostic Imaging Report ---
PATIENT HISTORY: Shortness of air, cough, congestion. TECHNIQUE: 2 views of the chest COMPARISON: 10/16/2018 FINDINGS: There appears to be mildly increased airspace opacity at the lung bases on the lateral view, likely the left lower lobe. The cardiac silhouette is normal in size. No pleural effusion or pneumothorax is seen. No acute osseous abnormalities seen. IMPRESSION: 1. Mild airspace opacities in the left lower lobe, may represent infection in the appropriate clinical setting. Dictated by: Dictated on workstation # [id number]
== END 2018-10-17 04:54 | disposition home or self-care (01) ==
LOC: EDUNIT# 21:13 → ER 21:15
DX: R05 Cough (principal); R11.2 Nausea with vomiting, unspecified; R50.9 Fever, unspecified
CPT/HCPCS: 36415; 71045; 71046; 80053; 81000; 83605; 85025; 85610; 85730; 86141; 87040; 87088; 87804

== ENCOUNTER 2020-09-09 20:10 | Inpatient (IN) | payer SELFPAY ==
[~2020-09-09] VITALS: Ht 177.8 cm; Wt 109.9 kg
[~2020-09-09 20:10] MED LIST changes: +AZIT250T12 PO; +ONDA4TAB11 SL; -OXYC-465 PO; +OXYC-556 PO
[2020-09-09] MEDS ORDERED: KETOROLAC 30 MG/ML VIAL IVP STA (20:32)
[2020-09-09] MEDS ORDERED: LACTATED RINGERS 1,000 ML IV STA (20:32)
[2020-09-09] MEDS ORDERED: ACETAMINOPHEN 500 MG TAB (TYLENOL) PO STA (20:32)
--- NOTE | 2020-09-09 20:40 | ED General ---
General Chief Complaint: Respiratory Problems Stated Complaint: COVID POSITIVE Source of Information: Patient Exam Limitations: No Limitations History of Present Illness Date Seen by Provider: Sep 09, 2020 Time Seen by Provider: 20:19 Initial Comments Here from home with report of being positive for COVID-19 since the with symptoms starting around the . Tested at [facility]. Has no primary care physician. Has not had infusion antibiotic therapy. is also positive for COVID-19 as well as his three kids. He has not been vaccinated. Reports O2 saturations dropping below 70% with activity at home while monitoring oxygen saturation. He has had nausea, vomiting and diarrhea. Her resting O2 saturation in the 80s. Arrives with O2 sat at 81% while resting. Denies any previous illnesses or surgeries. Denies allergies. Timing/Duration: Other (11 days) Severity: Moderate, Severe Associated Systoms: Cough, Fever/Chills, Loss of Appetite, Malaise, Nausea/Vomiting, Shortness of Air, Weakness Allergies and Home Medications Allergies Coded Allergies: No Known Drug Allergies (Unverified , 08/02/08) Home Medications Azithromycin 250 Mg Tablet, 250 MG PO DAILY Prescribed by: AMBER GRISSOM on 10/17/18 044 Diclofenac Potassium 50 Mg Tablet, 50 MG PO Q8H PRN for ankle pain Prescribed by: LILIAN LEW on 03/15/14 0516 Hydrocodone Bit/Acetaminophen 1 Each Tablet, 1 EACH PO Q 4 - 6 HRS PRN Prescribed by: SHERMAN RANDALL on 12/29/092047 Ondansetron 4 Mg Tab.rapdis, 4 MG SL Q4H PRN for NAUSEA/VOMITING Prescribed by: AMBER GRISSOM on 10/17/18 044 Oxycodone HCl/Acetaminophen 1 Each Tablet, 1-2 EACH PO Q6H PRN for BREAKTHROUGH PAIN Prescribed by: GREGG CELIS on 01/17/17 1600 Patient Home Medication List Home Medication List Reviewed: Yes Review of Systems Review of Systems Constitutional: see HPI, chills, fever, malaise EENTM: nose congestion; No throat pain Respiratory: cough, short of breath Cardiovascular: no symptoms reported Gastrointestinal: see HPI Genitourinary: no symptoms reported Musculoskeletal: muscle pain, muscle weakness Skin: no symptoms reported Psychiatric/Neurological: See HPI All Other Systems Reviewed Negative Unless Noted: Yes Past Fnhyydn-Qxejky-Jiqcxm Hx Patient Social History Tobacco Use?: No Substance use?: No Alcohol Use?: No Immunizations Up To Date Tetanus Booster (TDap): Less than 5yrs Past Medical History Surgeries: Yes Respiratory: No Cardiac: No Neurological: No Reproductive Disorders: No Sexually Transmitted Disease: No Gastrointestinal: No Musculoskeletal: Yes Gout Endocrine: No Cancer: No Psychosocial: No Integumentary: No Blood Disorders: No Family Medical History Reviewed Nursing Family Hx No Pertinent Family Hx Physical Exam-Suspected Sepsis Physical Exam Vital Signs Vital Signs - First Documented Capillary Refill : Height, Weight, BMI Height: 5'10.00" Weight: 260lbs. oz. 117.401770tp; BMI Method:Stated General Appearance: WD/WN, Mild Distress (Respiratory and weakness) HEENT: PERRL/EOMI, Pharyngeal Erythema Neck: Non Tender, Supple Respiratory: Crackles (Bibasilar); No Wheezing Cardiovascular: Regular Rate, Rhythm, No Murmur Gastrointestinal: Non Tender, Soft Back: Normal Inspection, No CVA Tenderness, No Vertebral Tenderness Extremity: Normal Range of Motion, Non Tender Neurologic/Psychiatric: Alert, Oriented x3 Skin: normal color, warm/dry Focused Exam Lactate Level 09/09/20 20:20: Lactic Acid Level 1.95 Lactic Acid Level Laboratory Tests Test 09/09/20 20:20 Lactic Acid Level 1.95 MMOL/L (0.50-2.00) Progress/Results/Core Measures Suspected Sepsis SIRS Temperature: Pulse: Respiratory Rate: Laboratory Tests 09/09/20 20:20: White Blood Count 11.0 Blood Pressure / Mean: 09/09/20 20:20: Lactic Acid Level 1.95 Laboratory Tests 09/09/20 20:20: Creatinine 1.32H, INR Comment 1.1, Platelet Count 260, Total Bilirubin 0.6 Results/Orders Lab Results Laboratory Tests Test 09/09/20 20:20 Range/Units White Blood Count 11.0 4.3-11.0 10^3/uL Red Blood Count 5.27 4.30-5.52 10^6/uL Hemoglobin 15.1 13.3-17.7 g/dL Hematocrit 44 40-54 % Mean Corpuscular Volume 84 80-99 fL Mean Corpuscular Hemoglobin 29 25-34 pg Mean Corpuscular Hemoglobin Concent 34 32-36 g/dL Red Cell Distribution Width 11.9 10.0-14.5 % Platelet Count 260 130-400 10^3/uL Mean Platelet Volume 12.0 9.0-12.2 fL Immature Granulocyte % (Auto) 2 % Neutrophils (%) (Auto) 78 H 42-75 % Lymphocytes (%) (Auto) 11 L 12-44 % Monocytes (%) (Auto) 9 0-12 % Eosinophils (%) (Auto) 0 0-10 % Basophils (%) (Auto) 0 0-10 % Neutrophils # (Auto) 8.5 H 1.8-7.8 10^3/uL Lymphocytes # (Auto) 1.2 1.0-4.0 10^3/uL Monocytes # (Auto) 1.0 0.0-1.0 10^3/uL Eosinophils # (Auto) 0.0 0.0-0.3 10^3/uL Basophils # (Auto) 0.0 0.0-0.1 10^3/uL Immature Granulocyte # (Auto) 0.2 H 0.0-0.1 10^3/uL Prothrombin Time 14.2 12.2-14.7 SEC INR Comment 1.1 0.8-1.4 Activated Partial Thromboplast Time 31 24-35 SEC D-Dimer 1.46 H 0.00-0.49 UG/ML Sodium Level 135 135-145 MMOL/L Potassium Level 3.6 3.6-5.0 MMOL/L Chloride Level 93 L 98-107 MMOL/L Carbon Dioxide Level 25 21-32 MMOL/L Anion Gap 17 H 5-14 MMOL/L Blood Urea Nitrogen 18 7-18 MG/DL Creatinine 1.32 H 0.60-1.30 MG/DL Estimat Glomerular Filtration Rate 57 BUN/Creatinine Ratio 14 Glucose Level 203 H 70-105 MG/DL Lactic Acid Level 1.95 0.50-2.00 MMOL/L Calcium Level 8.7 8.5-10.1 MG/DL Corrected Calcium 8.9 8.5-10.1 MG/DL Total Bilirubin 0.6 0.1-1.0 MG/DL Aspartate Amino Transf (AST/SGOT) 79 H 5-34 U/L Alanine Aminotransferase (ALT/SGPT) 90 H 0-55 U/L Alkaline Phosphatase 68 40-136 U/L C-Reactive Protein High Sensitivity 2.50 H 0.00-0.50 MG/DL Total Protein 7.3 6.4-8.2 GM/DL Albumin 3.7 3.2-4.5 GM/DL Procalcitonin 0.12 H <0.10 NG/ML My Orders Orders - SONIA CARLOS MD Dexamethasone Injection (Decadron Inje (09/09/20 20:45) Acetaminophen Tablet (Tylenol Tablet) (09/09/20 20:32) Ketorolac Injection (Toradol Injection) (09/09/20 20:32) Lactated Ringers (Lr 1000 Ml Iv Solution (09/09/20 20:32) Ed Iv/Invasive Line Start (09/09/20 20:32) Cbc With Automated Diff (09/09/20 20:33) Comprehensive Metabolic Panel (09/09/20 20:33) Blood Culture (09/09/20 20:33) Sputum Culture (09/09/20 20:33) Urinalysis (09/09/20 20:33) Urine Culture (09/09/20 20:33) Protime With Inr (09/09/20 20:33) Partial Thromboplastin Time (09/09/20 20:33) Chest 1 View, Ap/Pa Only (09/09/20 20:33) Ed Iv/Invasive Line Start (09/09/20 20:33) Ed Iv/Invasive Line Start (09/09/20 20:33) Vital Signs Adult Sepsis Patie Q15M (09/09/20 20:33) O2 (09/09/20 20:33) Remove Rings In Anticipation O (09/09/20 20:33) Lactic Acid Analyzer (09/09/20 20:33) Fibrin Degradation Products (09/09/20 20:34) Procalcitonin (Pct) (09/09/20 20:34) Hs C Reactive Protein (09/09/20 20:34) Convalescent Plasma (09/09/20 20:56) Abo Rh Type (09/09/20 20:56) Medications Given in ED Current Medications Medications Dose Ordered Sig/Benton Route Start Time Stop Time Status Last Admin Dose Admin Dexamethasone Sodium Phosphate 6 mg ONCE ONCE IV 09/09/20 20:45 09/09/20 20:46 DC 09/09/20 20:54 6 MG Vital Signs/I&O 09/09/20 09/09/20 09/09/20 09/09/20 20:10 20:10 20:51 20:52 Temp 38.0 38.0 38.0 Pulse 85 Resp 26 B/P (MAP) 130/85 (100) Pulse Ox 94 95 O2 Delivery Nasal Cannula Nasal Cannula O2 Flow Rate 6.00 6.00 Capillary Refill : Progress Note : Progress Note Seen and evaluated. Patient is known Covid positive. Sepsis protocol initiated. LR 1 L bolus, Tylenol 1 g p.o., Toradol 30 mg IV and Decadron 6 mg IV ordered. Oxygen placed via nasal cannula at 6 L to increase O2 sat greater than 92%. Currently at 93-94. I did discuss with the patient regarding convalescent plasma as he will require admission due to the fact that he needs oxygen. Patient informed of emergency use authorization and risk and benefits including allergic reaction and transfusion reaction. Patient has elected to accept convalescent plasma which was ordered although informed that it is likely several days away. 2100: I did discuss the case with Dr. Kent and she accepts patient for admission, inpatient status. We are pending remainder of work-up but then will get patient upstairs. Patient agrees with plan. 2300: Chest x- ray consistent with COVID-19 pneumonia. Labs reviewed. Doing better after fluids. Tolerating oxygen well with O2 sats remaining above 92%. Admit, inpatient status. Patient agrees with plan. Diagnostic Imaging Diagonstic Imaging: Xray Plain Films/CT/US/NM/MRI: chest Comments Bilateral pulmonary infiltrates in the lateral aspect and base consistent with COVID-19 pneumonia. Departure Communication (Admissions) Time/Spoke to Admitting Phy: 21:00 Impression Primary Impression: Pneumonia due to COVID-19 virus Additional Impression: Acute hypoxemic respiratory failure due to COVID-19 Disposition: ADMITTED INPATIENT Condition: Stable Admissions Decision to Admit Reason: Admit from ER (General) Decision to Admit/Date: Sep 09, 2020 Time/Decision to Admit Time: 21:00 Departure-Patient Inst. Referrals: [facility] [place] ([place]/Family) Primary Care Physician SONIA CARLOS MD Sep 09, 2020 20:40
[2020-09-09 20:53] LABS: BASOPHILS % (AUTO) 0 % (0-10); EOSINOPHILS % (AUTO) 0 % (0-10); HEMATOCRIT 44 % (40-54); HEMOGLOBIN 15.1 g/dL (13.3-17.7); LYMPHOCYTES # (AUTO) 1.2 10^3/uL (1.0-4.0); LYMPHOCYTES % (AUTO) 11 % (12-44); MEAN CORPUSCULAR HEMOGLOBIN 29 pg (25-34); MEAN CORPUSCULAR HGB CONC 34 g/dL (32-36); MEAN CORPUSCULAR VOLUME 84 fL (80-99); MONOCYTES % (AUTO) 9 % (0-12); NEUTROPHILS # (AUTO) 8.5 10^3/uL (1.8-7.8); NEUTROPHILS % (AUTO) 78 % (42-75); PLATELET COUNT 260 10^3/uL (130-400)
[2020-09-09 21:04] LABS: ALBUMIN 3.7 GM/DL (3.2-4.5); POTASSIUM 3.6 MMOL/L (3.6-5.0)
[2020-09-09 21:05] LABS: CALCIUM 8.7 MG/DL (8.5-10.1)
[2020-09-09 21:07] LABS: TOTAL PROTEIN 7.3 GM/DL (6.4-8.2)
[2020-09-09 21:08] LABS: BILIRUBIN,TOTAL 0.6 MG/DL (0.1-1.0)
[2020-09-09 21:10] LABS: CREATININE SERUM 1.32 MG/DL (0.60-1.30)
[2020-09-09 21:20] LABS: FIBRIN DEGRADATION PRODUCTS 1.46 UG/ML (0.00-0.49); INR 1.1 (0.8-1.4); PROTHROMBIN TIME PATIENT 14.2 SEC (12.2-14.7)
[2020-09-10] VITALS (12 sets, daily range): BP systolic 120–153; BP diastolic 61–77
[2020-09-10] MEDS ORDERED: RT-ALBUTEROL HFA 8.5 GM INHALER IH PRN (01:00)
[2020-09-10] MEDS ORDERED: NS IV 500 ML 500 ML ONE (01:07)
[2020-09-10] MEDS ORDERED: ONDANSETRON 4 MG/2 ML (SDV) Z0FRAN IV PRN (01:30)
[2020-09-10] MEDS ORDERED: ACETAMINOPHEN 325 MG TABLET PO PRN (01:30)
[2020-09-10] MEDS ORDERED: ONDANSETRON 4 MG/5 ML ORAL SOLN (ZOFRAN) 5 ML PO PRN (01:30)
[2020-09-10] MEDS: RT-ALBUTEROL HFA 8.5 GM INHALER IH SCH ×6 (01:59→21:38)
[2020-09-10] MEDS: LACTATED RINGERS 1,000 ML IV SCH ×2 (04:47→22:30)
[2020-09-10] MEDS: ENOXAPARIN 40 MG/0.4 ML (LOVENOX) SYR SC SCH ×2 (04:48→20:04)
--- NOTE | 2020-09-10 05:49 | Diagnostic Imaging Report ---
INDICATION: Covid positive. Comparison with 10/16/2018. FINDINGS: There has been development of diffuse scattered consolidated infiltrates within both lungs more severe on the left. Heart is not enlarged. No pneumothorax. Mild pleural effusion. IMPRESSION: Bilateral consolidated pneumonia is consistent with Covid infection. Dictated by: Dictated on workstation # [id number]
[2020-09-10] MEDS: dexAMETHasone 6 MG TAB (DECADRON) PO SCH (08:33)
--- NOTE | 2020-09-10 14:36 | Pulmonary Consultation ---
History of Present Illness History of Present Illness Date Seen by Provider: Sep 10, 2020 Time Seen by Provider: 14:31 Date of Admission Reason for Visit: COVID PNA History of Present Illness 50 M admitted with COVID PNA last night. Has had SOB, cough since 09/01. Cough is productive of mucoid sputum, small amount of blood Lost sense of smell, Never smoker, did not get vaccinated No DM, No HTN, no HDL, no CAD SOB worse when out of bed, SPO2 84-96%, lowest is 90%, on 6 lpm high flow Children also had COVID, in ED SpO2 was 81% On IV Decadron and remdesivir, also on Lovenox once a day, d dimer a little elevated at 1.46, is getting out of bedf Allergies and Home Medications Allergies Coded Allergies: No Known Drug Allergies (Unverified , 08/02/08) Home Medications No Active Prescriptions or Reported Meds Past Medical/Social/Family Hx Patient Social History Tobacco Use?: No Smoking Status: Never a Smoker Smokeless Tobacco Frequency: Never a User Use of E-Cig and/or Vaping dev: No E-Cig and/or Vaping Freq: Never a User Substance use?: No Alcohol Use?: No Pt stated abuse/neglect: No Immunizations Up To Date Influenza Vaccine Up-to-Date: No; Not Current Tetanus Booster (TDap): Less Than 5 Years Hepatitis A: No Hepatitis B: No TB Skin Test: None Current Status Advance Directives: No Communicates: Verbally Primary Language: Moldovan Preferred Spoken Language: Moldovan Is interpretation needed?: No Review of Systems Constitutional: see HPI Respiratory: cough, dyspnea on exertion, hemoptysis Sepsis Event Evaluation Height, Weight, BMI Height: 5'10.00" Weight: 260lbs. oz. 117.385206nk; 35.36 BMI Method:Stated Exam Exam Patient acknowledged, consented, and participated in this virtual visit which was conducted using real time audio/video Vital Signs Date Time Temp Pulse Resp B/P (MAP) Pulse Ox O2 Delivery O2 Flow Rate FiO2 09/10/20 12:00 36.4 68 22 131/66 (87) 90 Nasal Cannula 6.00 09/10/20 11:07 90 High Flow N/C 6.00 09/10/20 08:34 High Flow N/C 6.00 09/10/20 08:00 36.1 66 20 153/62 (92) 91 Nasal Cannula 6.00 09/10/20 07:31 90 High Flow N/C 6.00 09/10/20 04:53 36.8 63 18 126/75 94 Nasal Cannula 6.00 09/10/20 04:06 36.2 63 20 124/61 (82) 96 Nasal Cannula 6.00 09/10/20 02:00 94 Nasal Cannula 5.00 09/10/20 01:47 36.4 62 18 144/77 95 Nasal Cannula 6.00 09/10/20 01:46 36.4 61 18 144/77 96 Nasal Cannula 6.00 09/10/20 01:12 36.4 69 18 138/75 94 Nasal Cannula 6.00 09/10/20 00:47 36.1 62 96 09/10/20 00:45 Nasal Cannula 6.00 09/10/20 00:32 36.1 62 20 123/65 (84) 96 Nasal Cannula 6.00 09/10/20 00:15 38.0 67 22 124/94 (100) 94 Nasal Cannula 6.00 09/09/20 20:52 38.0 09/09/20 20:51 38.0 09/09/20 20:10 95 Nasal Cannula 6.00 09/09/20 20:10 38.0 85 26 130/85 (100) 94 Nasal Cannula 6.00 I & O 09/10/20 07:00 Intake Total 1719 ml Output Total 350 ml Balance 1369 ml Height & Weight Height: 5'10.00" Weight: 260lbs. oz. 117.042220az; 35.36 BMI Method:Stated General Appearance: WD/WN, Mild Distress (Respiratory and weakness) HEENT: PERRL/EOMI, Pharyngeal Erythema Neck: Non Tender, Supple Respiratory: Crackles (Bibasilar), Rhonci; No Wheezing Cardiovascular: Regular Rate, Rhythm, No Murmur Capillary Refill: Less Than 3 Seconds Gastrointestinal: normal bowel sounds, non tender Extremity: Normal Range of Motion, Non Tender, No Pedal Edema Neurologic/Psychiatric: Alert, Oriented x3 Results Lab Laboratory Tests 09/09/20 20:20 Assessment/Plan Assessment/Plan has bilateral infilutrates, on Decadron, outside of window for Remdesivir, will continue on current meds and monitor SpO2 D dimer a little high, on once a day enoxaparin, No Hx of DVT or Pul Emb Is getting out of bed Will continue to monitor oxygenation but right now looks stable. Time spent with patient (mins): 20 BAKARI GONZALEZ MD Sep 10, 2020 14:36
--- NOTE | 2020-09-10 15:18 | History & Physical-Hospitalist ---
History of Present Illness HPI/Chief Complaint Pt is a 50yo CM with no known past medical history who presented to the ER due to shortness of breath. He states that his symptoms started on 09/01. He is not vaccinated for COVID. He was reportedly hypoxic to the 70s at homes and was 81% on arrival here. He complains of cough and loss of taste. He denies nausea and vomiting. He has had some diarrhea. He was admitted for further treatment. Source: patient Date Seen 09/10/20 Time Seen by a Provider: 11:15 Attending Physician Fidel Kent MD PCP [place] [place] Referring Physician Date of Admission Sep 09, 2020 at 23:04 Home Medications & Allergies Home Medications Reviewed patient Home Medication Reconciliation performed by pharmacy medication reconciliations boiler service technician and/or nursing. Patients Allergies have been reviewed. Allergies Allergies Coded Allergies No Known Drug Allergies (Unverified08/02/08) Past Tscheyg-Akldwu-Utxnmv Hx Patient Social History Marrital Status: Tobacco Use?: No Smoking Status: Never a Smoker Smokeless Tobacco Frequency: Never a User Use of E-Cig and/or Vaping dev: No Use of E-Cig and/or Vaping Kyaw: Never a User Substance use?: No Alcohol Use?: No Pt feels they are or have been: No Immunizations Up To Date Tetanus Booster (TDap): Less Than 5 Years Hepatitis A: No Hepatitis B: No Current Status Advance Directives: No Communicates: Verbally Primary Language: Mosotho Preferred Spoken Language: Mosotho Is interpretation needed?: No Past Medical History Sexually Transmitted Disease: No Gout Blood Disorders: No Family Medical History Reviewed Nursing Family Hx No Pertinent Family Hx Review of Systems Constitutional: chills, fever, malaise EENTM: no symptoms reported Respiratory: cough, phlegm, short of breath Cardiovascular: No chest pain, No palpitations Gastrointestinal: diarrhea, loss of appetite; No nausea, No vomiting Genitourinary: no symptoms reported Musculoskeletal: no symptoms reported Skin: no symptoms reported Psychiatric/Neurological: No Symptoms Reported Physical Exam Physical Exam Vital Signs Vital Signs - First Documented Capillary Refill : Less Than 3 Seconds Height, Weight, BMI Height: 5'10.00" Weight: 260lbs. oz. 117.171554rb; 35.36 BMI Method:Stated General Appearance: No Apparent Distress, WD/WN, Obese HEENT: PERRL/EOMI, Moist Mucous Membranes; No Scleral Icterus (L), No Scleral Icterus (R) Neck: Normal Inspection, Supple Respiratory: No Accessory Muscle Use, Decreased Breath Sounds, Other (on 6lpm HFNC) Cardiovascular: Regular Rate, Rhythm, No Murmur Gastrointestinal: Normal Bowel Sounds, Non Tender, Soft Extremity: Normal Capillary Refill, No Calf Tenderness, No Pedal Edema Neurologic/Psychiatric: Alert, Oriented x3 Skin: Normal Color, Warm/Dry Results Results/Procedures Labs Laboratory Tests 09/09/20 20:20 09/11/20 04:07 Patient resulted labs reviewed. Imaging: Reviewed Imaging Report Imaging [facility], [place] NAME: GEORGINA ESQUIVEL [facility] REC#: [id number] PT STATUS: ADM IN : 1970 PHYSICIAN: SONIA CARLOS MD ADMIT DATE: 09/09/20 Signed Date of Exam:09/09/20 CHEST 1 VIEW, AP/PA ONLY INDICATION: Covid positive. Comparison with 10/16/2018. FINDINGS: There has been development of diffuse scattered consolidated infiltrates within both lungs more severe on the left. Heart is not enlarged. No pneumothorax. Mild pleural effusion. IMPRESSION: Bilateral consolidated pneumonia is consistent with Covid infection. Dictated by: Dictated on workstation # [id number] Dict: 09/10/20 0546 Trans: 09/10/20 1136 CR [id number] Interpreted by: AMBROCIO STOKES MD Electronically signed by: AMBROCIO STOKES MD 09/10/20 1136 Assessment/Plan Admission Diagnosis Acute hypoxic respiratory failure due to COVID19 Admission Status: Inpatient Order (span 2 midnights) Reason for Inpatient Admission: see below Assessment and Plan Acute hypoxic respiratory failure due to COVID19 Symptoms onset on 09/01 per patient Continue Decadron Pulm consult, appreciate recs Start remdesivir Already received convalescent plasma Encourage proning Supportive care MAT protocol DVT ppx: Lovenox Diagnosis/Problems Diagnosis/Problems (1) Acute hypoxemic respiratory failure due to COVID-19 Status: Acute FIDEL KENT MD Sep 10, 2020 15:18
[2020-09-10] MEDS ORDERED: REMDESIVIR INJ 200 MG in NS (IVPB) 210 ML IV ONE (15:30)
[2020-09-10] MEDS ORDERED: guaiFENesin/DM (ROBITUSSIN DM) 10 ML UDC PO PRN (15:30)
[2020-09-11] MEDS: LACTATED RINGERS 1,000 ML IV SCH ×2 (00:43→20:09)
[2020-09-11] MEDS: RT-ALBUTEROL HFA 8.5 GM INHALER IH SCH ×6 (01:05→20:51)
[2020-09-11 04:30] LABS: BASOPHILS % (AUTO) 0 % (0-10); EOSINOPHILS % (AUTO) 0 % (0-10); HEMATOCRIT 37 % (40-54); HEMOGLOBIN 12.5 g/dL (13.3-17.7); LYMPHOCYTES # (AUTO) 1.1 10^3/uL (1.0-4.0); LYMPHOCYTES % (AUTO) 8 % (12-44); MEAN CORPUSCULAR HEMOGLOBIN 29 pg (25-34); MEAN CORPUSCULAR HGB CONC 34 g/dL (32-36); MEAN CORPUSCULAR VOLUME 84 fL (80-99); MEAN PLATELET VOLUME 12.4 fL (9.0-12.2); MONOCYTES # (AUTO) 1.1 10^3/uL (0.0-1.0); MONOCYTES % (AUTO) 8 % (0-12); NEUTROPHILS # (AUTO) 12.1 10^3/uL (1.8-7.8); NEUTROPHILS % (AUTO) 83 % (42-75); PLATELET COUNT 264 10^3/uL (130-400); WHITE BLOOD COUNT 14.7 10^3/uL (4.3-11.0)
[2020-09-11 04:38] LABS: POTASSIUM 4.2 MMOL/L (3.6-5.0)
[2020-09-11 04:40] LABS: CALCIUM 8.7 MG/DL (8.5-10.1)
[2020-09-11 04:41] LABS: TOTAL PROTEIN 5.9 GM/DL (6.4-8.2)
[2020-09-11 04:43] LABS: BILIRUBIN,TOTAL 0.3 MG/DL (0.1-1.0)
[2020-09-11 04:44] LABS: CREATININE SERUM 1.18 MG/DL (0.60-1.30)
[2020-09-11 04:48] VITALS: BP 119/72
[2020-09-11 04:49] LABS: BAND NEUTROPHILS 2 %; LYMPHOCYTES % (MANUAL) 6 %; MONOCYTES % (MANUAL) 8 %; NEUTROPHILS % (MANUAL) 84 %; RBC MORPH NORMAL
[2020-09-11 08:00] VITALS: BP 120/71
[2020-09-11] MEDS: dexAMETHasone 6 MG TAB (DECADRON) PO SCH (08:36)
[2020-09-11 12:00] VITALS: BP 117/71
--- NOTE | 2020-09-11 12:37 | Pulmonary Progress Note ---
Subjective Date Seen by a Provider: Sep 11, 2020 Time Seen by a Provider: 12:36 Subjective/Events-last exam events over night: feeling better Sepsis Event Evaluation Height, Weight, BMI Height: 5'10.00" Weight: 260lbs. oz. 117.938034nd; 35.36 BMI Method:Stated Focused Exam Lactate Level 09/09/20 20:20: Lactic Acid Level 1.95 Exam Exam Patient acknowledged, consented, and participated in this virtual visit which was conducted using real time audio/video Vital Signs Date Time Temp Pulse Resp B/P (MAP) Pulse Ox O2 Delivery O2 Flow Rate FiO2 09/11/20 12:00 35.0 56 20 117/71 (86) 90 Nasal Cannula 6.00 09/11/20 10:32 94 High Flow N/C 3.00 09/11/20 08:00 36.3 66 20 120/71 (87) 90 Nasal Cannula 6.00 09/11/20 08:00 High Flow N/C 5.00 09/11/20 07:32 93 High Flow N/C 5.00 09/11/20 04:48 36.4 65 18 119/72 (88) 97 Nasal Cannula 7.50 09/11/20 01:06 92 High Flow N/C 7.00 09/10/20 23:12 36.8 66 18 120/70 (87) 93 Nasal Cannula 7.50 09/10/20 21:38 92 High Flow N/C 7.00 09/10/20 20:00 High Flow N/C 6.00 09/10/20 19:35 36.3 77 18 142/68 (92) 94 Nasal Cannula 6.00 09/10/20 19:29 90 High Flow N/C 8.00 09/10/20 15:38 36.4 68 16 128/67 (87) 94 High Flow N/C 6.00 09/10/20 15:15 90 High Flow N/C 6.00 I & O 09/11/20 07:00 Intake Total 3190 ml Output Total 1900 ml Balance 1290 ml Height & Weight Height: 5'10.00" Weight: 260lbs. oz. 117.892781ow; 35.36 BMI Method:Stated General Appearance: WD/WN, Mild Distress (Respiratory and weakness) HEENT: PERRL/EOMI, Pharyngeal Erythema Neck: Non Tender, Supple Respiratory: Crackles (Bibasilar), Decreased Breath Sounds, Rhonci; No Wheezing Cardiovascular: Regular Rate, Rhythm, No Murmur Capillary Refill: Less Than 3 Seconds Gastrointestinal: normal bowel sounds, non tender Extremity: Normal Range of Motion, Non Tender, No Pedal Edema Neurologic/Psychiatric: Alert, Oriented x3 Skin: Normal Color, Warm/Dry Results Lab Laboratory Tests 09/09/20 20:20 09/11/20 04:07 Assessment/Plan Assessment/Plan Acute hypoxemic resp failure COVID PNA -o2 nc 3l -lovenox, remdesivir abg ordered. continue to monitor ANIVAL BRITO MD Sep 11, 2020 12:37
--- NOTE | 2020-09-11 12:40 | Progress Note - Hospitalist ---
Subjective HPI/CC On Admission Date Seen by Provider: Sep 11, 2020 Time Seen by Provider: 12:38 Pt is a 50yo CM with no known past medical history who presented to the ER due to shortness of breath. He states that his symptoms started on 09/01. He is not vaccinated for COVID. He was reportedly hypoxic to the 70s at homes and was 81% on arrival here. He complains of cough and loss of taste. He denies nausea and vomiting. He has had some diarrhea. He was admitted for further treatment. Subjective/Events-last exam Pt reports doing well today. No complaints. Oxygen requirement down today. Focused Exam Lactate Level 09/09/20 20:20: Lactic Acid Level 1.95 Objective Exam Vital Signs Vital Signs Date Time Temp Pulse Resp B/P (MAP) Pulse Ox O2 Delivery O2 Flow Rate FiO2 09/11/20 12:00 35.0 56 20 117/71 (86) 90 Nasal Cannula 6.00 Capillary Refill : Less Than 3 Seconds General Appearance: No Apparent Distress, Obese Respiratory: No Accessory Muscle Use; No Crackles; Decreased Breath Sounds, Other (3lpm) Cardiovascular: Regular Rate, Rhythm, No Murmur Gastrointestinal: Normal Bowel Sounds, Non Tender, Soft Extremity: No Calf Tenderness, No Pedal Edema Neurologic/Psychiatric: Alert, Oriented x3 Results/Procedures Lab Laboratory Tests 09/11/20 04:07 Patient resulted labs reviewed. Imaging: Reviewed Imaging Report Assessment/Plan Assessment and Plan Assess & Plan/Chief Complaint Acute hypoxic respiratory failure due to COVID19 Transaminitis Symptoms onset on 09/01 per patient Continue Decadron Pulm consult, appreciate recs Continue remdesivir Already received convalescent plasma Encourage proning and IS Supportive care MAT protocol DVT ppx: Lovenox Diagnosis/Problems Diagnosis/Problems (1) Acute hypoxemic respiratory failure due to COVID-19 Status: Acute FIDEL ANDERSON MD Sep 11, 2020 12:40
--- NOTE | 2020-09-11 12:54 | Diagnostic Imaging Report ---
INDICATION: Pneumonia Portable chest obtained at 1239 p.m. and compared to 09/09/2020. There is cardiomegaly with central vascular congestion. There are worsening bilateral infiltrates, especially in the upper lobes, compatible with pneumonia. There is no pneumothorax or pleural fluid collection. IMPRESSION: Worsening bilateral infiltrates compatible with pneumonia. Dictated by: Dictated on workstation # [id number]
[2020-09-11 15:06] LABS: ABG BASE EXCESS 1.6 MMOL/L (-2.5-2.5); ABG OXYGEN SATURATION 90 % (94-100); ABG PCO2 40 MMHG (35-45); ABG PH 7.42 (7.37-7.43); ABG PO2 59 MMHG (79-93); ABG TCO2 26.9 MMOL/L (21.0-31.0)
[2020-09-11 15:08] LABS: INSPIRED O2 3; VENTILATOR NO
[2020-09-11 16:50] VITALS: BP 138/74
[2020-09-11] MEDS: REMDESIVIR INJ 100 MG in NS (IVPB) 230 ML IV SCH (16:53)
[2020-09-11] MEDS: ENOXAPARIN 40 MG/0.4 ML (LOVENOX) SYR SC SCH (20:08)
[2020-09-11 20:25] VITALS: BP 174/78
[2020-09-11 20:48] VITALS: BP 147/78
[2020-09-12] VITALS (7 sets, daily range): BP systolic 125–160; BP diastolic 74–87
[2020-09-12] MEDS: RT-ALBUTEROL HFA 8.5 GM INHALER IH SCH ×6 (02:26→21:33)
[2020-09-12 06:07] LABS: ALBUMIN 2.9 GM/DL (3.2-4.5); POTASSIUM 3.8 MMOL/L (3.6-5.0)
[2020-09-12 06:09] LABS: CALCIUM 8.2 MG/DL (8.5-10.1)
[2020-09-12 06:10] LABS: TOTAL PROTEIN 5.5 GM/DL (6.4-8.2)
[2020-09-12 06:12] LABS: BILIRUBIN,TOTAL 0.4 MG/DL (0.1-1.0)
[2020-09-12 06:13] LABS: CREATININE SERUM 1.04 MG/DL (0.60-1.30)
[2020-09-12] MEDS: dexAMETHasone 6 MG TAB (DECADRON) PO SCH (08:50)
--- NOTE | 2020-09-12 09:50 | Tele-ICU Progress Note ---
Subjective Date Seen by a Provider: Sep 12, 2020 Time Seen by a Provider: 09:15 Subjective/Events-last exam Patient acknowledged, consented, and participated in this virtual visit which was conducted using real time audio/video. Thank you for asking us to see this patient for respiratory insufficiency and distress due to Covid pna. Non vaccinated. Describes night as a"a little rough". HPC: Recent events: none new PMH: none per pt. SH: smoking history: none. FH: Non-contributory ROS: still symptomatic PE: VSS O2 sat 93% on 6 LPM NC. HEENT: No obvious masses, adenopathy or JVD. Chest: clear to auscultation. CV: RRR S1 S2 No murmur or added sounds. Abd: Non-tender. Bowel sounds . : Unremarkable. Mccracken . PMP CERTIFIED PROJECT MANAGER/psychiatric: Alert and oriented, grossly intact. No obvious focal findings. Extremities: No edema. Capillary refill < 3 seconds. Skin: unremarkable. Results: Elevated WCC 14.7. Decreased Alb 2.9. A/P: Respiratory insufficiency/distress: subjectively unimproved and Sats marginal on 6 LPM. Available chart/ vitals / labs / Images reviewed. Video assessment done using teleICU camera. Respiratory: Continue present management with NC Monitor for increasing oxygenation needs and/or need for ICU transfer. Critical Care: critically ill patient. Cont Claude., Dec., Tim., Alb. Asked RN to reach out to eICU if any questions or concerns later. Time spent with patient/coordination of care with other health professionals (mins): 15 Sepsis Event Evaluation Sepsis Stage: Ruled Out Height, Weight, BMI Height: 5'10.00" Weight: 260lbs. oz. 117.447987nt; 35.36 BMI Method:Stated Focused Exam Sepsis Stage: Ruled Out Lactate Level 09/09/20 20:20: Lactic Acid Level 1.95 Exam Exam Patient acknowledged, consented, and participated in this virtual visit which was conducted using real time audio/video Vital Signs Date Time Temp Pulse Resp B/P (MAP) Pulse Ox O2 Delivery O2 Flow Rate FiO2 09/12/20 08:00 37.0 88 22 125/79 (94) 93 Nasal Cannula 5.00 09/12/20 08:00 93 High Flow N/C 5.00 09/12/20 07:25 93 High Flow N/C 8.00 09/12/20 04:00 36.7 58 20 137/79 (98) 95 High Flow N/C 7.00 09/12/20 02:27 95 High Flow N/C 8.00 09/12/20 00:00 37.0 58 20 142/78 (99) 93 High Flow N/C 8.00 09/11/20 21:44 93 High Flow N/C 8.00 09/11/20 20:54 92 High Flow N/C 8.00 09/11/20 20:48 30 147/78 (101) 93 High Flow N/C 8.00 09/11/20 20:25 37.2 76 28 174/78 (110) 89 Nasal Cannula 5.00 09/11/20 20:00 93 High Flow N/C 8.00 09/11/20 17:41 91 High Flow N/C 5.00 09/11/20 16:50 36.1 67 20 138/74 (95) 90 Nasal Cannula 5.00 09/11/20 14:50 92 High Flow N/C 3.00 09/11/20 14:19 94 Nasal Cannula 5.00 09/11/20 12:00 35.0 56 20 117/71 (86) 90 Nasal Cannula 6.00 09/11/20 10:32 94 High Flow N/C 3.00 I & O 09/12/20 07:00 Intake Total 2562 ml Output Total 2950 ml Balance -388 ml Height & Weight Height: 5'10.00" Weight: 260lbs. oz. 117.057331fn; 35.36 BMI Method:Stated General Appearance: WD/WN, Mild Distress (Respiratory and weakness) HEENT: PERRL/EOMI, Pharyngeal Erythema Neck: Non Tender, Supple Respiratory: Crackles (Bibasilar), Decreased Breath Sounds, Rhonci; No Wheezing Cardiovascular: Regular Rate, Rhythm, No Murmur Capillary Refill: Less Than 3 Seconds Gastrointestinal: normal bowel sounds, non tender Extremity: Normal Range of Motion, Non Tender, No Pedal Edema Neurologic/Psychiatric: Alert, Oriented x3 Skin: Normal Color, Warm/Dry Results Lab Laboratory Tests 09/11/20 04:07 09/12/20 05:37 Assessment/Plan Assessment/Plan See free text. Critical Care: Critically Ill Patient Time spent on discussion(mins): 0 Diagnosis/Problems Diagnosis/Problems (1) Pneumonia due to COVID-19 virus (2) Hypoxia (3) Acute hypoxemic respiratory failure due to COVID-19 Status: Acute (4) Pneumonia due to COVID-19 virus Status: Acute ABELINO RING MD Sep 12, 2020 09:50
--- NOTE | 2020-09-12 11:14 | Progress Note - Hospitalist ---
Subjective HPI/CC On Admission Date Seen by Provider: Sep 12, 2020 Time Seen by Provider: 11:08 Pt is a 50yo CM with no known past medical history who presented to the ER due to shortness of breath. He states that his symptoms started on 09/01. He is not vaccinated for COVID. He was reportedly hypoxic to the 70s at homes and was 81% on arrival here. He complains of cough and loss of taste. He denies nausea and vomiting. He has had some diarrhea. He was admitted for further treatment. Subjective/Events-last exam Pt at first reports feeling ok. When I told pateint I didn't think he looked as well he agreed and said he had a rough night and does not feel as well today. he is more short when he speaks too. We discussed that he is getting all the treatment options we have and we will just take it day by day and support him with whatever he needs. Focused Exam Lactate Level 09/09/20 20:20: Lactic Acid Level 1.95 Objective Exam Vital Signs Vital Signs Date Time Temp Pulse Resp B/P (MAP) Pulse Ox O2 Delivery O2 Flow Rate FiO2 09/12/20 11:25 94 High Flow N/C 8.00 09/12/20 08:00 37.0 88 22 125/79 (94) Capillary Refill : Less Than 3 Seconds General Appearance: No Apparent Distress, Obese, Other (ill appearing) Respiratory: No Accessory Muscle Use; No Crackles; Decreased Breath Sounds, Other (on 8lpm) Cardiovascular: Regular Rate, Rhythm, No Murmur Gastrointestinal: Normal Bowel Sounds, Non Tender, Soft Neurologic/Psychiatric: Alert, Oriented x3 Results/Procedures Lab Laboratory Tests 09/12/20 05:37 Patient resulted labs reviewed. Imaging: Reviewed Imaging Report Assessment/Plan Assessment and Plan Assess & Plan/Chief Complaint Acute hypoxic respiratory failure due to COVID19 Transaminitis Obesity Symptoms onset on 09/01 per patient Continue Decadron Pulm consult, appreciate recs- Discussed with Dr Ritchie today Continue remdesivir, if worsens will try actemra and DC remdesivir Already received convalescent plasma Encourage proning and IS Supportive care MAT protocol DVT ppx: Lovenox Critical Care Critically Ill Patient Diagnosis/Problems Diagnosis/Problems (1) Acute hypoxemic respiratory failure due to COVID-19 Status: Acute FIDEL ANDERSON MD Sep 12, 2020 11:14
[2020-09-12] MEDS: LACTATED RINGERS 1,000 ML IV SCH (15:09)
[2020-09-12] MEDS: REMDESIVIR INJ 100 MG in NS (IVPB) 230 ML IV SCH (15:09)
[2020-09-12] MEDS: ENOXAPARIN 40 MG/0.4 ML (LOVENOX) SYR SC SCH (21:42)
[2020-09-13] VITALS (14 sets, daily range): BP systolic 121–162; BP diastolic 65–114
[2020-09-13] MEDS: RT-ALBUTEROL HFA 8.5 GM INHALER IH SCH ×6 (03:18→22:08)
[2020-09-13 04:27] LABS: BASOPHILS # (AUTO) 0.1 10^3/uL (0.0-0.1); BASOPHILS % (AUTO) 0 % (0-10); EOSINOPHILS # (AUTO) 0.1 10^3/uL (0.0-0.3); EOSINOPHILS % (AUTO) 1 % (0-10); HEMATOCRIT 39 % (40-54); HEMOGLOBIN 13.3 g/dL (13.3-17.7); LYMPHOCYTES # (AUTO) 1.5 10^3/uL (1.0-4.0); LYMPHOCYTES % (AUTO) 12 % (12-44); MEAN CORPUSCULAR HEMOGLOBIN 29 pg (25-34); MEAN CORPUSCULAR HGB CONC 35 g/dL (32-36); MEAN CORPUSCULAR VOLUME 83 fL (80-99); MEAN PLATELET VOLUME 11.9 fL (9.0-12.2); MONOCYTES # (AUTO) 0.9 10^3/uL (0.0-1.0); MONOCYTES % (AUTO) 7 % (0-12); NEUTROPHILS # (AUTO) 8.8 10^3/uL (1.8-7.8); NEUTROPHILS % (AUTO) 74 % (42-75); PLATELET COUNT 181 10^3/uL (130-400)
[2020-09-13 04:41] LABS: ALBUMIN 2.9 GM/DL (3.2-4.5)
[2020-09-13 04:42] LABS: POTASSIUM 3.7 MMOL/L (3.6-5.0)
[2020-09-13 04:44] LABS: TOTAL PROTEIN 5.4 GM/DL (6.4-8.2)
[2020-09-13 04:46] LABS: BILIRUBIN,TOTAL 0.6 MG/DL (0.1-1.0)
[2020-09-13 04:48] LABS: CREATININE SERUM 0.86 MG/DL (0.60-1.30)
[2020-09-13] MEDS: dexAMETHasone 6 MG TAB (DECADRON) PO SCH (08:57)
[2020-09-13] MEDS: LACTATED RINGERS 1,000 ML IV SCH (12:00)
--- NOTE | 2020-09-13 12:27 | Progress Note - Hospitalist ---
Subjective HPI/CC On Admission Date Seen by Provider: Sep 13, 2020 Time Seen by Provider: 09:45 Pt is a 50yo CM with no known past medical history who presented to the ER due to shortness of breath. He states that his symptoms started on 09/01. He is not vaccinated for COVID. He was reportedly hypoxic to the 70s at homes and was 81% on arrival here. He complains of cough and loss of taste. He denies nausea and vomiting. He has had some diarrhea. He was admitted for further treatment. Subjective/Events-last exam Pt had increasing oxygen requirement overnight. Now on Vapotherm. Treports it's helping him breath by pushing air in. We discussed the next steps should he need more support including possible transfer to ICU, need for BiPAP and even mechanical ventilation. He expressed understanding this plan. Objective Exam Vital Signs Vital Signs Date Time Temp Pulse Resp B/P (MAP) Pulse Ox O2 Delivery O2 Flow Rate FiO2 09/14/20 09:00 48 15 167/96 (119) 93 Vapotherm 30.00 70.00 09/14/20 08:00 35.4 09/14/20 07:01 70 Capillary Refill : Less Than 3 Seconds General Appearance: Anxious, Obese Respiratory: No Accessory Muscle Use, Decreased Breath Sounds; No Wheezing; Other (on Vapotherm) Cardiovascular: Regular Rate, Rhythm, No Murmur Gastrointestinal: Normal Bowel Sounds, Non Tender, Soft Neurologic/Psychiatric: Alert, Oriented x3 Results/Procedures Lab Laboratory Tests 09/14/20 03:26 Patient resulted labs reviewed. Imaging: Reviewed Imaging Report Assessment/Plan Assessment and Plan Assess & Plan/Chief Complaint Acute hypoxic respiratory failure due to COVID19 Transaminitis Obesity Symptoms onset on 09/01 per patient Continue Decadron Pulm consult, appreciate recs- Discussed with Dr Ritchie again today, he recommended transfer to ICU, will transfer Will dose with actemra Received called at 120 that patient is refusing transfer to ICU, asked for her to call daniel sheffield to have him sign refusal of recommended treatment form Already received convalescent plasma on 09/10 Encourage proning and IS Supportive care MAT protocol DVT ppx: Lovenox Critical Care Critically Ill Patient Diagnosis/Problems Diagnosis/Problems (1) Acute hypoxemic respiratory failure due to COVID-19 Status: Acute FIDEL ANDERSON MD Sep 13, 2020 12:27
[2020-09-13] MEDS ORDERED: TOCILIZUMAB INJECTION (NON-FOR 800 MG in NS (IVPB) 60 ML IV ONE (12:30)
[2020-09-13] MEDS: ENOXAPARIN 300 MG/3 ML (LOVENOX) MULTI-DOSE VIAL SQ SCH (13:23)
--- NOTE | 2020-09-13 13:38 | Tele-ICU Progress Note ---
Subjective Date Seen by a Provider: Sep 13, 2020 Time Seen by a Provider: 13:10 Subjective/Events-last exam This is a virtual visit which was conducted using real time audio/video. Thank you for asking us to see this patient for respiratory insufficiency and distress due to Covid pna. Non vaccinated. transferred from floor due to increased O2 needs. D/W Dr. Kent. HPC: increased O2 needs. PMH: none per pt. SH: smoking history: none. FH: Non-contributory ROS: still symptomatic PE: Appears comfortable. Obese. VSS O2 sat 98% on 6VT HEENT: No obvious masses, adenopathy or JVD. Chest: clear to auscultation. CV: RRR S1 S2 No murmur or added sounds. Abd: Non-tender. Bowel sounds . : Unremarkable. Mccracken: No . SAP BPC DEVELOPER/psychiatric: Alert and oriented, grossly intact. No obvious focal findings. Extremities: No edema. Capillary refill < 3 seconds. Skin: unremarkable. Results: Elevated WCC 12, glucose 205. Decreased Alb 2.9. A/P: Respiratory insufficiency/distress: transferred into ICU. Available chart/ vitals / labs / Images reviewed. Video assessment done using teleICU camera. Respiratory: Continue present management with VT. Monitor for increasing oxygenation needs and/or need for BiPAP/Intubation. Critical Care: critically ill patient. Cont Remdes., Dex., Tim., Albuterol. Dr. Kent added Actemra. Time spent with patient/coordination of care with other health professionals (mins): 15 Sepsis Event Evaluation Height, Weight, BMI Height: 5'10.00" Weight: 260lbs. oz. 117.878795fs; 35.36 BMI Method:Stated Exam Exam Patient acknowledged, consented, and participated in this virtual visit which was conducted using real time audio/video Vital Signs Date Time Temp Pulse Resp B/P (MAP) Pulse Ox O2 Delivery O2 Flow Rate FiO2 09/13/20 13:15 37.1 67 24 141/114 (123) 94 Vapotherm 30.00 90.00 09/13/20 13:13 94 Vapotherm 30.00 90 09/13/20 11:07 37.3 72 24 162/78 (106) 92 Vapotherm 30.00 90.00 09/13/20 10:35 95 30.00 90 09/13/20 10:34 96 Vapotherm 35.00 100 09/13/20 08:44 93 High Flow N/C 7.00 09/13/20 08:05 93 Nasal Cannula 7.00 09/13/20 07:57 36.3 61 24 143/80 (101) 92 High Flow N/C 7.00 09/13/20 04:13 36.4 66 22 157/78 (104) 91 High Flow N/C 7.00 09/13/20 03:18 91 High Flow N/C 7.00 09/12/20 23:46 37.0 70 22 150/87 (108) 92 High Flow N/C 7.00 09/12/20 21:42 93 High Flow N/C 7.00 09/12/20 21:33 91 High Flow N/C 7.00 09/12/20 20:16 37.2 70 22 149/81 (103) 93 High Flow N/C 7.00 09/12/20 18:05 92 High Flow N/C 8.00 09/12/20 16:10 36.7 74 22 160/76 (104) 90 High Flow N/C 7.00 09/12/20 15:32 89 High Flow N/C 8.00 I & O 09/13/20 07:00 Intake Total 2730 ml Output Total 1575 ml Balance 1155 ml Height & Weight Height: 5'10.00" Weight: 260lbs. oz. 117.382967pg; 35.36 BMI Method:Stated General Appearance: Anxious, Obese HEENT: PERRL/EOMI, Pharyngeal Erythema Neck: Non Tender, Supple Respiratory: No Accessory Muscle Use, Decreased Breath Sounds; No Wheezing; Other (on Vapotherm) Cardiovascular: Regular Rate, Rhythm, No Murmur Capillary Refill: Less Than 3 Seconds Gastrointestinal: normal bowel sounds, non tender Extremity: Normal Range of Motion, Non Tender, No Pedal Edema Neurologic/Psychiatric: Alert, Oriented x3 Skin: Normal Color, Warm/Dry Results Lab Laboratory Tests 09/12/20 05:37 09/13/20 04:00 Assessment/Plan Assessment/Plan see free text. Critical Care: Critically Ill Patient Time spent on discussion(mins): 0 Diagnosis/Problems Diagnosis/Problems (1) Pneumonia due to COVID-19 virus (2) Hypoxia (3) Acute hypoxemic respiratory failure due to COVID-19 Status: Acute (4) Pneumonia due to COVID-19 virus Status: Acute ABELINO RING MD Sep 13, 2020 13:38
[2020-09-13] MEDS: REMDESIVIR INJ 100 MG in NS (IVPB) 230 ML IV SCH (14:49)
[2020-09-14] VITALS (23 sets, daily range): BP systolic 131–182; BP diastolic 72–114
[2020-09-14] MEDS: ENOXAPARIN 300 MG/3 ML (LOVENOX) MULTI-DOSE VIAL SQ SCH ×2 (01:17→13:20)
[2020-09-14] MEDS: RT-ALBUTEROL HFA 8.5 GM INHALER IH SCH ×6 (02:23→22:06)
[2020-09-14 04:16] LABS: POTASSIUM 4.3 MMOL/L (3.6-5.0)
[2020-09-14 04:17] LABS: ALBUMIN 2.8 GM/DL (3.2-4.5); BILIRUBIN,TOTAL 0.5 MG/DL (0.1-1.0); CALCIUM 7.8 MG/DL (8.5-10.1); CREATININE SERUM 0.84 MG/DL (0.60-1.30); MAGNESIUM 1.8 MG/DL (1.6-2.4); PHOSPHORUS 3.4 MG/DL (2.3-4.7); TOTAL PROTEIN 5.4 GM/DL (6.4-8.2)
[2020-09-14] MEDS: LACTATED RINGERS 1,000 ML IV SCH (05:06)
[2020-09-14] MEDS: dexAMETHasone 6 MG TAB (DECADRON) PO SCH (08:28)
--- NOTE | 2020-09-14 09:40 | Tele-ICU Progress Note ---
Subjective Date Seen by a Provider: Sep 14, 2020 Time Seen by a Provider: 09:40 Sepsis Event Evaluation Height, Weight, BMI Height: 5'10.00" Weight: 260lbs. oz. 117.409240zc; 35.36 BMI Method:Stated Exam Exam Patient acknowledged, consented, and participated in this virtual visit which was conducted using real time audio/video Vital Signs Date Time Temp Pulse Resp B/P (MAP) Pulse Ox O2 Delivery O2 Flow Rate FiO2 09/14/20 09:00 48 15 167/96 (119) 93 Vapotherm 30.00 70.00 09/14/20 08:00 46 33 181/107 (143) 96 Vapotherm 30.00 70.00 09/14/20 08:00 35.4 09/14/20 07:01 98 Vapotherm 30.00 70 09/14/20 07:00 63 13 182/114 (131) 94 Vapotherm 30.00 70.00 09/14/20 07:00 51 09/14/20 06:00 59 172/112 (132) 96 Vapotherm 30.00 70.00 09/14/20 05:00 46 31 151/98 (115) 95 Vapotherm 30.00 70.00 09/14/20 04:09 36.8 09/14/20 04:00 95 Vapotherm 30.00 70 09/14/20 04:00 50 22 138/80 (99) 96 Vapotherm 30.00 70.00 09/14/20 03:00 53 22 141/89 (106) 95 Vapotherm 30.00 70.00 09/14/20 02:23 94 Vapotherm 30.00 70 09/14/20 02:00 48 135/77 (96) 96 Vapotherm 30.00 70.00 09/14/20 01:00 46 09/14/20 01:00 46 132/80 (97) 96 Vapotherm 30.00 70.00 09/14/20 00:00 95 Vapotherm 30.00 70 09/14/20 00:00 36.6 09/14/20 00:00 45 142/100 (114) 95 Vapotherm 30.00 70.00 09/13/20 23:00 49 141/86 (104) 93 Vapotherm 30.00 70.00 09/13/20 22:08 95 Vapotherm 30.00 70 09/13/20 22:00 63 126/76 (93) 92 Vapotherm 30.00 70.00 09/13/20 21:00 57 135/79 (97) 95 Vapotherm 30.00 70.00 09/13/20 20:00 36.2 09/13/20 20:00 95 Vapotherm 30.00 70 09/13/20 20:00 121/79 (93) 09/13/20 20:00 65 93 Vapotherm 30.00 70.00 09/13/20 19:00 70 137/65 (89) 97 Vapotherm 30.00 70.00 09/13/20 19:00 66 09/13/20 18:56 97 Vapotherm 30.00 70 09/13/20 18:00 71 148/90 (109) 95 Vapotherm 30.00 90.00 09/13/20 17:00 53 153/95 (117) 96 Vapotherm 30.00 90.00 09/13/20 16:00 57 153/91 (110) 96 Vapotherm 30.00 90.00 09/13/20 15:00 63 144/87 (106) 97 Vapotherm 30.00 90.00 09/13/20 14:00 56 12 140/88 (105) 99 Vapotherm 30.00 90.00 09/13/20 13:38 65 09/13/20 13:15 37.1 67 24 141/114 (123) 94 Vapotherm 30.00 90.00 09/13/20 13:13 94 Vapotherm 30.00 90 09/13/20 13:10 96 Vapotherm 30.00 90 09/13/20 11:07 37.3 72 24 162/78 (106) 92 Vapotherm 30.00 90.00 09/13/20 10:35 95 30.00 90 09/13/20 10:34 96 Vapotherm 35.00 100 I & O 09/14/20 07:00 Intake Total 1270 ml Output Total 1725 ml Balance -455 ml Height & Weight Height: 5'10.00" Weight: 260lbs. oz. 117.095597gi; 35.36 BMI Method:Stated General Appearance: Anxious, Obese HEENT: PERRL/EOMI, Pharyngeal Erythema Neck: Non Tender, Supple Respiratory: No Accessory Muscle Use, Decreased Breath Sounds; No Wheezing; Other (on Vapotherm) Cardiovascular: Regular Rate, Rhythm, No Murmur Capillary Refill: Less Than 3 Seconds Gastrointestinal: normal bowel sounds, non tender Extremity: Normal Range of Motion, Non Tender, No Pedal Edema Neurologic/Psychiatric: Alert, Oriented x3 Skin: Normal Color, Warm/Dry Results Lab Laboratory Tests 09/13/20 04:00 09/14/20 03:26 Assessment/Plan Assessment/Plan (Tele-ICU Physician , Progress Note ) Available chart/ vitals / labs / Images reviewed Video assessment done using teleICU camera, rest of exam as per RN Discussed with RN Events overnight : Afebrile I/O = Drips: LR50 Pressors: , hemodynamically stable EXAM PER RN Consultants: Hospital course: 09/10 admitted with COVID PNA - 6L NS 09/13- vapotherm 100% 09/14 - vapotherm 30L 70% A/P Acute resp failure with COVID PNA 09/14 - vapotherm 30L 70% COVID PNA - remdesivir -decadron -lovenox full dose started on 09/13 Hyperhlycemia - stat ISS , check hb 1ac Lines : periph , (Central Line Necessity Reviewed) Mccracken: OG: Nutrition: po Analgesia: Anxiety/ delirium VTE Prophylaxis: lovenox full dose Stress Ulcer Prophylaxis: na - Po Glycemic Control: Plans in collaboration with bedside consultants and IM MDs. Discussed with RN to reach out if any questions or concerns A total of 31 minutes of critical care time was devoted to this patient today, required to treat and/or prevent further deterioration of critical care condition ( as above) . UDAY HOLLAND MD Sep 14, 2020 09:40
--- NOTE | 2020-09-14 09:40 | Progress Note - Hospitalist ---
Subjective HPI/CC On Admission Date Seen by Provider: Sep 14, 2020 Time Seen by Provider: 09:36 Pt is a 50yo CM with no known past medical history who presented to the ER due to shortness of breath. He states that his symptoms started on 09/01. He is not vaccinated for COVID. He was reportedly hypoxic to the 70s at homes and was 81% on arrival here. He complains of cough and loss of taste. He denies nausea and vomiting. He has had some diarrhea. He was admitted for further treatment. Subjective/Events-last exam Pt reports feeling better today. Laying on side and sleeping. No complaints or concerns. Discussed plan to continue to work on weaning oxygen and monitor closely in the ICU. He is agreeable to this plan. Objective Exam Vital Signs Vital Signs Date Time Temp Pulse Resp B/P (MAP) Pulse Ox O2 Delivery O2 Flow Rate FiO2 09/14/20 09:00 48 15 167/96 (119) 93 Vapotherm 30.00 70.00 09/14/20 08:00 35.4 09/14/20 07:01 70 Capillary Refill : Less Than 3 Seconds General Appearance: No Apparent Distress, Obese Respiratory: No Accessory Muscle Use, Decreased Breath Sounds; No Rhonci; Other (on Vapotherm) Cardiovascular: Regular Rate, Rhythm, No Murmur Gastrointestinal: Normal Bowel Sounds, Non Tender, Soft Neurologic/Psychiatric: Alert, Oriented x3 Results/Procedures Lab Laboratory Tests 09/14/20 03:26 Patient resulted labs reviewed. Imaging: Reviewed Imaging Report Assessment/Plan Assessment and Plan Assess & Plan/Chief Complaint Acute hypoxic respiratory failure due to COVID19 Transaminitis Obesity Symptoms onset on 09/01 per patient Continue Decadron Pulm consult, appreciate recs Discussed with TeleICU today s/p KAROLINA salmeron remdesivir due to high oxygen requirement Already received convalescent plasma on 09/10 Encourage proning and IS Supportive care MAT protocol DVT ppx: Lovenox Critical Care Critically Ill Patient Diagnosis/Problems Diagnosis/Problems (1) Acute hypoxemic respiratory failure due to COVID-19 Status: Acute FIDEL ANDERSON MD Sep 14, 2020 09:40
[2020-09-14] MEDS: inSUlin ASPART (NovoLOG) 1 UNIT/0.01 ML (CHARGE PER UNIT) SC SCH ×3 (11:32→20:46)
[2020-09-15] VITALS (24 sets, daily range): BP systolic 116–158; BP diastolic 68–98
[2020-09-15] MEDS: LACTATED RINGERS 1,000 ML IV SCH (00:19)
[2020-09-15] MEDS: RT-ALBUTEROL HFA 8.5 GM INHALER IH SCH ×6 (01:22→22:20)
[2020-09-15] MEDS ORDERED: ENOXAPARIN 60 MG/0.6 ML (LOVENOX) SYR SC NR (02:30)
[2020-09-15] MEDS: ENOXAPARIN 300 MG/3 ML (LOVENOX) MULTI-DOSE VIAL SQ SCH ×2 (02:38→12:47)
[2020-09-15 04:10] LABS: BASOPHILS % (AUTO) 0 % (0-10); EOSINOPHILS # (AUTO) 0.2 10^3/uL (0.0-0.3); EOSINOPHILS % (AUTO) 1 % (0-10); HEMATOCRIT 36 % (40-54); HEMOGLOBIN 12.2 g/dL (13.3-17.7); LYMPHOCYTES # (AUTO) 1.6 10^3/uL (1.0-4.0); LYMPHOCYTES % (AUTO) 12 % (12-44); MEAN CORPUSCULAR HEMOGLOBIN 29 pg (25-34); MEAN CORPUSCULAR HGB CONC 34 g/dL (32-36); MEAN CORPUSCULAR VOLUME 84 fL (80-99); MEAN PLATELET VOLUME 12.5 fL (9.0-12.2); MONOCYTES % (AUTO) 7 % (0-12); NEUTROPHILS # (AUTO) 10.2 10^3/uL (1.8-7.8); NEUTROPHILS % (AUTO) 75 % (42-75); PLATELET COUNT 215 10^3/uL (130-400); WHITE BLOOD COUNT 13.6 10^3/uL (4.3-11.0)
[2020-09-15 04:20] LABS: ALBUMIN 2.7 GM/DL (3.2-4.5); POTASSIUM 4.3 MMOL/L (3.6-5.0)
[2020-09-15 04:21] LABS: CALCIUM 7.9 MG/DL (8.5-10.1)
[2020-09-15 04:22] LABS: TOTAL PROTEIN 5.1 GM/DL (6.4-8.2)
[2020-09-15 04:24] LABS: BILIRUBIN,TOTAL 0.5 MG/DL (0.1-1.0)
[2020-09-15 04:26] LABS: CREATININE SERUM 0.85 MG/DL (0.60-1.30)
[2020-09-15] MEDS: inSUlin ASPART (NovoLOG) 1 UNIT/0.01 ML (CHARGE PER UNIT) SC SCH ×4 (07:28→21:00)
--- NOTE | 2020-09-15 07:48 | Diagnostic Imaging Report ---
INDICATION: Hypoxia. Comparison made with prior examination 09/11/2020 FINDINGS: There is cardiomegaly. There is some venous congestion. There are patchy bilateral pulmonary infiltrates. There is no pleural effusion or pneumothorax. Mediastinum is unremarkable. IMPRESSION: Relatively unchanged patchy bilateral pulmonary infiltrates suspect for pneumonia. Cardiomegaly and some likely underlying central pulmonary venous congestion. Dictated by: Dictated on workstation # [id number]
[2020-09-15] MEDS: dexAMETHasone 6 MG TAB (DECADRON) PO SCH (08:36)
--- NOTE | 2020-09-15 10:12 | Tele-ICU Progress Note ---
Subjective Date Seen by a Provider: Sep 15, 2020 Time Seen by a Provider: 10:12 Sepsis Event Evaluation Height, Weight, BMI Height: 5'10.00" Weight: 260lbs. oz. 117.576518vm; 35.36 BMI Method:Stated Exam Exam Patient acknowledged, consented, and participated in this virtual visit which was conducted using real time audio/video Vital Signs Date Time Temp Pulse Resp B/P (MAP) Pulse Ox O2 Delivery O2 Flow Rate FiO2 09/15/20 09:57 92 Vapotherm 30.00 55 09/15/20 08:00 35.9 09/15/20 07:53 92 Vapotherm 30.00 55 09/15/20 07:29 94 Vapotherm 30.00 55.00 09/15/20 07:00 45 09/15/20 06:00 54 20 149/90 (109) 92 Vapotherm 30.00 60.00 09/15/20 05:00 50 24 122/83 (102) 91 Vapotherm 30.00 60.00 09/15/20 04:00 94 Vapotherm 30.00 60 09/15/20 04:00 49 24 141/93 (113) 95 Vapotherm 30.00 60.00 09/15/20 03:00 41 18 123/71 (93) 98 Vapotherm 30.00 60.00 09/15/20 02:00 48 30 116/68 (77) 95 Vapotherm 30.00 60.00 09/15/20 01:22 93 Vapotherm 30.00 60 09/15/20 01:00 50 09/15/20 01:00 50 28 116/72 (93) 94 Vapotherm 30.00 60.00 09/15/20 00:15 35.6 Vapotherm 30.00 60.00 09/15/20 00:00 96 Vapotherm 30.00 60 09/15/20 00:00 52 19 138/87 (113) 94 Vapotherm 30.00 65.00 09/14/20 23:00 53 14 131/72 (97) 96 Vapotherm 30.00 65.00 09/14/20 22:07 93 Vapotherm 30.00 65 09/14/20 22:00 48 32 149/90 (111) 95 Vapotherm 30.00 65.00 09/14/20 21:00 51 24 140/76 (97) 94 Vapotherm 30.00 65.00 09/14/20 20:40 36.6 95 Vapotherm 30.00 65.00 09/14/20 20:30 96 Vapotherm 30.00 65 09/14/20 20:00 75 25 142/95 (111) 91 Vapotherm 30.00 70.00 09/14/20 19:20 93 Vapotherm 30.00 70 09/14/20 19:00 65 17 139/81 (100) 94 Vapotherm 30.00 70.00 09/14/20 19:00 74 09/14/20 18:00 50 28 152/96 (114) 97 Vapotherm 30.00 70.00 09/14/20 17:53 36.2 09/14/20 17:00 66 27 96 Vapotherm 30.00 70.00 09/14/20 16:00 92 26 182/114 (140) 92 Vapotherm 30.00 70.00 09/14/20 16:00 94 Vapotherm 30.00 70 09/14/20 15:00 81 174/96 (116) 92 Vapotherm 30.00 70.00 09/14/20 14:58 92 Vapotherm 30.00 70 09/14/20 14:00 78 151/93 (112) 90 Vapotherm 30.00 70.00 09/14/20 13:00 49 22 163/94 (117) 94 Vapotherm 30.00 70.00 09/14/20 12:51 48 09/14/20 12:00 94 Vapotherm 30.00 70 09/14/20 12:00 48 28 170/94 (119) 95 Vapotherm 30.00 70.00 09/14/20 11:30 36.4 09/14/20 11:00 51 28 136/89 (105) 95 Vapotherm 30.00 70.00 09/14/20 10:37 93 Vapotherm 30.00 70 I & O 09/15/20 07:00 Intake Total 1700 ml Output Total 2025 ml Balance -325 ml Height & Weight Height: 5'10.00" Weight: 260lbs. oz. 117.068481ua; 35.36 BMI Method:Stated General Appearance: Anxious, Obese HEENT: PERRL/EOMI, Pharyngeal Erythema Neck: Non Tender, Supple Respiratory: No Accessory Muscle Use, Decreased Breath Sounds; No Wheezing; Ot her (on Vapotherm) Cardiovascular: Regular Rate, Rhythm, No Murmur Capillary Refill: Less Than 3 Seconds Gastrointestinal: normal bowel sounds, non tender Extremity: Normal Range of Motion, Non Tender, No Pedal Edema Neurologic/Psychiatric: Alert, Oriented x3 Skin: Normal Color, Warm/Dry Results Lab Laboratory Tests 09/14/20 03:26 09/15/20 03:57 Assessment/Plan Assessment/Plan (Tele-ICU Physician , Progress Note ) Available chart/ vitals / labs / Images reviewed Video assessment done using teleICU camera, rest of exam as per RN Discussed with RN Events overnight : Afebrile I/O = NEG Drips: LR50 Pressors: , hemodynamically stable EXAM PER RN Consultants: Hospital course: 09/10 admitted with COVID PNA - 6L NS 09/13- vapotherm 100% 09/14 - vapotherm 30L 70% 09/15 VAPOTHERM 30L55% A/P Acute resp failure with COVID PNA - vapotherm 30L 55 % - improving L, CXR same COVID PNA - remdesivir -decadron -lovenox full dose started on 09/13 Hyperhlycemia - stat ISS , check hb 1ac Lines : periph , (Central Line Necessity Reviewed) Mccracken: OG: Nutrition: po Analgesia: Anxiety/ delirium VTE Prophylaxis: lovenox full dose Stress Ulcer Prophylaxis: na - Po Glycemic Control: Plans in collaboration with bedside consultants and IM MDs. Discussed with RN to reach out if any questions or concerns A total of 24 minutes of critical care time was devoted to this patient today, required to treat and/or prevent further deterioration of critical care condition ( as above) . UDAY HOLLAND MD Sep 15, 2020 10:12
--- NOTE | 2020-09-15 16:40 | Progress Note - Hospitalist ---
Subjective HPI/CC On Admission Date Seen by Provider: Sep 15, 2020 Time Seen by Provider: 09:00 Pt is a 50yo CM with no known past medical history who presented to the ER due to shortness of breath. He states that his symptoms started on 09/01. He is not vaccinated for COVID. He was reportedly hypoxic to the 70s at homes and was 81% on arrival here. He complains of cough and loss of taste. He denies nausea and vomiting. He has had some diarrhea. He was admitted for further treatment. Subjective/Events-last exam He does not have any complaints or concerns. He thinks he is feeling better. He is not short of breath. He still has a bit of a cough. He is not having any fevers. He has been able to eat and drink without issue. Objective Exam Vital Signs Vital Signs Date Time Temp Pulse Resp B/P (MAP) Pulse Ox O2 Delivery O2 Flow Rate FiO2 09/15/20 14:08 92 Vapotherm 20.00 50 09/15/20 13:00 53 09/15/20 11:40 36.4 09/15/20 11:00 28 137/77 (97) Capillary Refill : Less Than 3 Seconds General Appearance: No Apparent Distress, Obese Respiratory: Lungs Clear, Normal Breath Sounds, No Respiratory Distress Cardiovascular: Regular Rate, Rhythm, No Edema, No Murmur Gastrointestinal: Normal Bowel Sounds, Non Tender, Soft Extremity: Normal Inspection, Non Tender, No Pedal Edema Neurologic/Psychiatric: Alert, Oriented x3, No Motor/Sensory Deficits, Normal Mood/Affect Skin: Normal Color, Warm/Dry Results/Procedures Lab Laboratory Tests 09/15/20 03:57 Patient resulted labs reviewed. Imaging: Reviewed Imaging Report Assessment/Plan Assessment and Plan Assess & Plan/Chief Complaint Acute respiratory failure due to COVID-19 Elevated LFTs Obesity Symptoms onset on 09/01 per patient Currently on Vapotherm, oxygen requirement improving Continue Decadron s/p Actemra Already received convalescent plasma on 09/10 Supportive care MAT protocol TeleICU following DVT ppx: Lovenox Critical Care Critically Ill Patient Diagnosis/Problems Diagnosis/Problems (1) Acute respiratory failure due to COVID-19 Status: Acute (2) Obesity Status: Acute DWAYNE BECK MD Sep 15, 2020 16:40
[2020-09-16] VITALS (11 sets, daily range): BP systolic 110–142; BP diastolic 63–88
[2020-09-16] MEDS: ENOXAPARIN 300 MG/3 ML (LOVENOX) MULTI-DOSE VIAL SQ SCH ×2 (00:11→14:13)
[2020-09-16] MEDS: RT-ALBUTEROL HFA 8.5 GM INHALER IH SCH ×6 (02:40→21:26)
[2020-09-16 04:48] LABS: BASOPHILS % (AUTO) 0 % (0-10); EOSINOPHILS # (AUTO) 0.1 10^3/uL (0.0-0.3); EOSINOPHILS % (AUTO) 1 % (0-10); HEMATOCRIT 38 % (40-54); HEMOGLOBIN 13.2 g/dL (13.3-17.7); LYMPHOCYTES # (AUTO) 1.8 10^3/uL (1.0-4.0); LYMPHOCYTES % (AUTO) 12 % (12-44); MEAN CORPUSCULAR HEMOGLOBIN 29 pg (25-34); MEAN CORPUSCULAR HGB CONC 35 g/dL (32-36); MEAN CORPUSCULAR VOLUME 84 fL (80-99); MEAN PLATELET VOLUME 12.7 fL (9.0-12.2); MONOCYTES % (AUTO) 7 % (0-12); NEUTROPHILS # (AUTO) 11.2 10^3/uL (1.8-7.8); NEUTROPHILS % (AUTO) 77 % (42-75); PLATELET COUNT 254 10^3/uL (130-400); WHITE BLOOD COUNT 14.6 10^3/uL (4.3-11.0)
[2020-09-16 04:58] LABS: ALBUMIN 3.1 GM/DL (3.2-4.5); POTASSIUM 4.3 MMOL/L (3.6-5.0)
[2020-09-16 04:59] LABS: CALCIUM 8.4 MG/DL (8.5-10.1)
[2020-09-16 05:01] LABS: TOTAL PROTEIN 5.7 GM/DL (6.4-8.2)
[2020-09-16 05:02] LABS: BILIRUBIN,TOTAL 0.6 MG/DL (0.1-1.0)
[2020-09-16 05:04] LABS: CREATININE SERUM 0.88 MG/DL (0.60-1.30)
[2020-09-16] MEDS: inSUlin ASPART (NovoLOG) 1 UNIT/0.01 ML (CHARGE PER UNIT) SC SCH ×4 (05:40→20:47)
[2020-09-16] MEDS: dexAMETHasone 6 MG TAB (DECADRON) PO SCH (07:55)
--- NOTE | 2020-09-16 13:12 | Progress Note - Hospitalist ---
Subjective HPI/CC On Admission Date Seen by Provider: Sep 16, 2020 Time Seen by Provider: 09:50 Pt is a 50yo CM with no known past medical history who presented to the ER due to shortness of breath. He states that his symptoms started on 09/01. He is not vaccinated for COVID. He was reportedly hypoxic to the 70s at homes and was 81% on arrival here. He complains of cough and loss of taste. He denies nausea and vomiting. He has had some diarrhea. He was admitted for further treatment. Subjective/Events-last exam He is feeling well. He denies shortness of breath. He has been eating and drinking well. Objective Exam Vital Signs Vital Signs Date Time Temp Pulse Resp B/P (MAP) Pulse Ox O2 Delivery O2 Flow Rate FiO2 09/16/20 12:27 96 Vapotherm 30.00 45 09/16/20 11:29 36.5 09/16/20 07:46 46 24 110/63 (79) Capillary Refill : Less Than 3 Seconds General Appearance: No Apparent Distress, Obese Respiratory: Lungs Clear, Normal Breath Sounds, No Respiratory Distress Cardiovascular: Regular Rate, Rhythm, No Edema, No Murmur Gastrointestinal: Normal Bowel Sounds, Non Tender, Soft Extremity: Normal Inspection, Non Tender, No Pedal Edema Neurologic/Psychiatric: Alert, Oriented x3, No Motor/Sensory Deficits, Normal Mood/Affect Skin: Normal Color, Warm/Dry Results/Procedures Lab Laboratory Tests 09/16/20 04:00 Patient resulted labs reviewed. Imaging: Reviewed Imaging Report Assessment/Plan Assessment and Plan Assess & Plan/Chief Complaint Acute respiratory failure due to COVID-19 Elevated LFTs Obesity Symptoms onset on 09/01 per patient Currently on Vapotherm, oxygen requirement improving Continue Decadron s/p Actemra s/p convalescent plasma DVT ppx: Lovenox Diagnosis/Problems Diagnosis/Problems (1) Acute respiratory failure due to COVID-19 Status: Acute (2) Obesity Status: Acute DWAYNE BECK MD Sep 16, 2020 13:12
[2020-09-17] VITALS: BP 122/73
[2020-09-17] MEDS: ENOXAPARIN 300 MG/3 ML (LOVENOX) MULTI-DOSE VIAL SQ SCH (00:38)
[2020-09-17 00:42] VITALS: BP 122/73
[2020-09-17 04:00] VITALS: BP 123/83
[2020-09-17 04:50] VITALS: BP 135/87
[2020-09-17] MEDS: inSUlin ASPART (NovoLOG) 1 UNIT/0.01 ML (CHARGE PER UNIT) SC SCH ×2 (05:41→10:50)
[2020-09-17] MEDS ORDERED: metFORMIN 500 MG (GLUCOPHAGE) TAB PO ONE (07:30)
[2020-09-17 08:00] VITALS: BP 118/61
[2020-09-17] MEDS ORDERED: RT-ALBUTEROL HFA 8.5 GM INHALER IH SCH (09:00)
[2020-09-17] MEDS ORDERED: METF-397 PO (12:30)
--- NOTE | 2020-09-17 12:41 | Discharge Summary ---
Discharge Summary Hospital Course Was the Problem List Reviewed?: Yes Problems/Dx: (1) Acute respiratory failure due to COVID-19 Status: Acute (2) Obesity Status: Acute (3) T2DM (type 2 diabetes mellitus) Status: Acute Qualifiers: Qualified Codes: E11.9 - Type 2 diabetes mellitus without complications Hospital Course Date of Admission: Sep 09, 2020 at 23:04 Admission Diagnosis : Acute respiratory failure due to COVID-19 [facility] Date of Discharge: 09/17/20 Discharge Diagnosis: Acute respiratory failure due to COVID-19 Hospital Course: Genaro Gallagher is a 50-year-old male who was admitted with acute respiratory failure due to COVID-19. He required ICU level care with high flow oxygen Via Vapotherm. He was treated with steroids, Decadron, and convalescent plasma. His oxygen slowly improved and he was weaned down to nasal cannula. He was feeling well and so was set up with home oxygen and discharged. He was requiring 4 L continuously and 7 L with activity. His course was complicated by new onset type 2 diabetes mellitus. He was started on Metformin and instructed to increase the dose slowly. He needs to establish care with a new primary care physician at the [facility]. He was discharged home in stable condition. Labs and Pending Lab Test: Laboratory Tests 09/16/20 15:45: Glucometer 276H 09/16/20 20:31: Glucometer 373H 09/17/20 05:35: Glucometer 206H 09/17/20 10:47: Glucometer 179H Microbiology 09/09/20 Blood Culture - Final, Complete No growth Home Meds Active Metformin HCl 500 Mg Tablet 500 Mg PO DAILY 30 Days TAKE ONCE DAILY WITH BREAKFAST X 1 WEEK, THEN TWICE DAILY WITH BREAKFAST AND DINNER X 1 WEEK, THEN TWO TABS TWICE DAILY Assessment/Pt Instructions Take medications as prescribed. Establish care with a primary care physician. Return with worsening shortness of breath or if you feel like you are getting worse. Discharge Planning: <30 minutes discharge planning Discharge Instructions Discharge Diet: No Restrictions Activity as Tolerated: Yes Discharge Physical Examination Vital Signs Vital Signs Date Time Temp Pulse Resp B/P (MAP) Pulse Ox O2 Delivery O2 Flow Rate FiO2 09/17/20 11:22 97 High Flow N/C 4.00 09/17/20 09:44 101 09/17/20 08:00 36.4 23 118/61 (80) 09/16/20 20:55 40 General Appearance: No Apparent Distress, Obese Respiratory: Lungs Clear, Normal Breath Sounds, No Respiratory Distress Cardiovascular: Regular Rate, Rhythm, No Edema, No Murmur Gastrointestinal: Normal Bowel Sounds, Non Tender, Soft Extremity: Normal Inspection, Non Tender, No Pedal Edema Skin: Normal Color, Warm/Dry Neurologic/Psychiatric: Alert, Oriented x3, No Motor/Sensory Deficits, Normal Mood/Affect Allergies: Coded Allergies: No Known Drug Allergies (Unverified , 08/02/08) Copy Copies To 1: [facility] [place] [facility] [place] Dis[place] Summary Date of Admission Sep 09, 2020 at 23:04 Date of Discharge Discharge Date: Sep 17, 2020 Discharge Time: 09:30 Admission Diagnosis Acute hypoxic respiratory failure due to COVID19 Comfort Measures/ Time spent on discussion (min): 0 Discharge Diagnosis Acute respiratory failure due to COVID-19 (1) Acute respiratory failure due to COVID-19 Status: Acute (2) Obesity Status: Acute (3) T2DM (type 2 diabetes mellitus) Status: Acute Qualifiers: Qualified Codes: E11.9 - Type 2 diabetes mellitus without complications DWAYNE BECK MD Sep 17, 2020 12:39
[2020-09-18] MEDS ORDERED: metFORMIN 500 MG (GLUCOPHAGE) TAB PO SCH (07:00)
== END 2020-09-17 14:27 | disposition home or self-care (01) | DRG 177 ==
LOC: EDUNIT# 20:10 → ER 20:12 → 4TH 23:04 → ICU 09-13 13:05 → CSD 09-16 03:46
PROVIDERS: ADMIT Family Medicine; ATTEND Internal Medicine
PROC: XW033E5 Introduction of Remdesivir Anti-infective into Peripheral Vein, Percutaneous Approach, New Technology Group 5 (ICD-10-PCS; principal; 2020-09-10)
PROC: XW13325 Transfusion of Convalescent Plasma (Nonautologous) into Peripheral Vein, Percutaneous Approach, New Technology Group 5 (ICD-10-PCS; 2020-09-10)
DX: U07.1 COVID-19 (principal); J12.82 Pneumonia due to coronavirus disease 2019; J96.01 Acute respiratory failure with hypoxia; M10.9 Gout, unspecified; E66.9 Obesity, unspecified; R74.01 Elevation of levels of liver transaminase levels; E11.9 Type 2 diabetes mellitus without complications; Z79.2 Long term (current) use of antibiotics; Z79.899 Other long term (current) drug therapy; Z68.34 Body mass index [BMI] 34.0-34.9, adult; Z73.0 Burn-out
CPT/HCPCS: 36415; 71045; 80053; 82805; 82947; 83036; 83605; 83735; 84100; 84145; 85007; 85025; 85027; 85379; 85610; 85730; 86141; 86900; 86901; 87040; 94640; 94760; 94761; 96361; 96374; 96375

== ENCOUNTER 2020-10-15 02:50 | Emergency (ER) | payer SELFPAY ==
[~2020-10-15] VITALS: Ht 177.8 cm; Wt 108.9 kg
[~2020-10-15 02:50] MED LIST changes: +METF-397 PO
[2020-10-15 02:54] VITALS: BP 179/117
[2020-10-15] MEDS ORDERED: KETOROLAC 30 MG/ML VIAL ONE (02:58)
[2020-10-15] MEDS ORDERED: LACTATED RINGERS 1,000 ML IV ONE ×2 (02:58→03:00)
[2020-10-15] MEDS ORDERED: KETOROLAC 30 MG/ML VIAL IVP ONE (03:00)
[2020-10-15 03:03] LABS: BASOPHILS # (AUTO) 0.1 10^3/uL (0.0-0.1); BASOPHILS % (AUTO) 1 % (0-10); EOSINOPHILS # (AUTO) 0.1 10^3/uL (0.0-0.3); EOSINOPHILS % (AUTO) 0 % (0-10); HEMATOCRIT 44 % (40-54); HEMOGLOBIN 14.9 g/dL (13.3-17.7); LYMPHOCYTES # (AUTO) 1.7 10^3/uL (1.0-4.0); LYMPHOCYTES % (AUTO) 11 % (12-44); MEAN CORPUSCULAR HEMOGLOBIN 29 pg (25-34); MEAN CORPUSCULAR HGB CONC 34 g/dL (32-36); MEAN CORPUSCULAR VOLUME 85 fL (80-99); MEAN PLATELET VOLUME 12.5 fL (9.0-12.2); MONOCYTES # (AUTO) 0.8 10^3/uL (0.0-1.0); MONOCYTES % (AUTO) 5 % (0-12); NEUTROPHILS % (AUTO) 82 % (42-75); PLATELET COUNT 245 10^3/uL (130-400); WHITE BLOOD COUNT 15.9 10^3/uL (4.3-11.0)
[2020-10-15 03:11] LABS: ALBUMIN 4.5 GM/DL (3.2-4.5); POTASSIUM 4.3 MMOL/L (3.6-5.0)
[2020-10-15 03:14] LABS: TOTAL PROTEIN 7.5 GM/DL (6.4-8.2)
[2020-10-15 03:16] LABS: BILIRUBIN,TOTAL 0.7 MG/DL (0.1-1.0)
[2020-10-15 03:18] LABS: CREATININE SERUM 1.37 MG/DL (0.60-1.30)
[2020-10-15 03:34] LABS: LYMPHOCYTES % (MANUAL) 11 %; MICROCYTOSIS SLIGHT; MONOCYTES % (MANUAL) 3 %; NEUTROPHILS % (MANUAL) 86 %
[2020-10-15 04:45] LABS: BILIRUBIN,URINE NEGATIVE (NEGATIVE); CLARITY,URINE CLOUDY; COLOR,URINE YELLOW; GLUCOSE, URINE (UA) 2+ (NEGATIVE); KETONES,URINE 1+ (NEGATIVE); LEUKOCYTE ESTERASE ,URINE NEGATIVE (NEGATIVE); NITRITE,URINE NEGATIVE (NEGATIVE); PH,URINE 6.5 (5-9); PROTEIN,URINE TRACE (NEGATIVE)
[2020-10-15 04:53] LABS: BACTERIA,URINE TRACE /HPF; RBC,URINE TNTC /HPF; WBC,URINE 0-2 /HPF
--- NOTE | 2020-10-15 06:23 | ED Abdominal Pain ---
General Chief Complaint: Abdominal/GI Problems Stated Complaint: ABD PAIN Nursing Triage Note: PT TO RM 5 PER WC W CO LLQ ABD PAIN SX 1900 YESTERDAY EVENING. Source of Information: Patient Exam Limitations: No Limitations (AMBER RIBEIRO MD) History of Present Illness Date Seen by Provider: Oct 15, 2020 Time Seen by Provider: 02:55 Initial Comments Mr. Esquievl is a 50 year old gentleman who presents to the ER with left flank pain suspicious for ureteral stone. Pain started yesterday evening. He denies other symptoms. Symptoms are similar to prior ureteral stones. He has COVID-19 pneumonia hospitalization in August and is now on O2 support. (AMBER RIBEIRO MD) Allergies and Home Medications Allergies Coded Allergies: No Known Drug Allergies (Unverified , 08/02/08) Home Medications Hydrocodone/Acetaminophen 1 Each Tablet, 1 TAB PO Q6H PRN for PAIN-MODERATE (5- 7) Prescribed by: KISHOR FRASER on 10/15/20 0629 Metformin HCl 500 Mg Tablet, 500 MG PO DAILY TAKE ONCE DAILY WITH BREAKFAST X 1 WEEK, THEN TWICE DAILY WITH BREAKFAST AND DINNER X 1 WEEK, THEN TWO TABS TWICE DAILY Prescribed by: DWAYNE BECK on 09/17/20 1230 Ondansetron 4 Mg Tab.rapdis, 4 MG PO Q8H Prescribed by: KISHOR FRASER on 10/15/20 06 Tamsulosin HCl 0.4 Mg Cap, 0.4 MG PO DAILY Prescribed by: KISHOR FRASER on 10/15/20627 Patient Home Medication List Home Medication List Reviewed: Yes (AMBER RIBEIRO MD) Review of Systems Review of Systems Constitutional: no symptoms reported EENTM: No Symptoms Reported Respiratory: No Symptoms Reported Cardiovascular: No Symptoms Reported Gastrointestinal: See HPI Genitourinary: See HPI Musculoskeletal: no symptoms reported Skin: no symptoms reported Psychiatric/Neurological: No Symptoms Reported Endocrine: No Symptoms Reported Hematologic/Lymphatic: No Symptoms Reported (AMBER RIBEIRO MD) Past Fpaqxha-Gobpuh-Bkoisa Hx Patient Social History Tobacco Use?: No Smoking Status: Never a Smoker Substance use?: No Alcohol Use?: No (AMBER RIBEIRO MD) Immunizations Up To Date Tetanus Booster (TDap): Less than 5yrs (AMBRE RIBEIRO MD) Past Medical History Surgeries: Yes (left forearm laceration) Respiratory: Yes (COVID-19 pneumonia August 2020 requiring oxygen support) Cardiac: No Neurological: No Reproductive Disorders: No Sexually Transmitted Disease: No Genitourinary: Yes Kidney Stones Gastrointestinal: No Musculoskeletal: Yes Gout Endocrine: No Cancer: No Psychosocial: No Integumentary: No Blood Disorders: No (AMBER RIBEIRO MD) Family Medical History No Pertinent Family Hx (AMBER RIBEIRO MD) Physical Exam Vital Signs Vital Signs - First Documented 10/15/20 02:54 Temp 36.4 Pulse 69 Resp 26 B/P (MAP) 179/117 (137) Pulse Ox 95 O2 Delivery Room Air (KISHOR FRASER MD) Vital Signs Capillary Refill : Less Than 3 Seconds (AMBER RIBEIRO MD) Height/Weight/BMI Height: 5'10.00" Weight: 260lbs. oz. [id number]; 34.00 BMI Method:Stated General Appearance: WD/WN, no apparent distress HEENT: normal ENT inspection Neck: normal inspection Respiratory: lungs clear, normal breath sounds, no respiratory distress, no accessory muscle use Cardiovascular: regular rate, rhythm, no edema, no murmur Gastrointestinal: normal bowel sounds, soft, tenderness (left mid abdomen) Extremities: normal inspection, no pedal edema Neurologic/Psychiatric: alert, normal mood/affect, oriented x 3 Skin: normal color, warm/dry (AMBER RIBEIRO MD) Progress/Results/Core Measures Results/Orders Lab Results Laboratory Tests Test 10/15/20 02:55 10/15/20 04:33 Range/Units White Blood Count 15.9 H 4.3-11.0 10^3/uL Red Blood Count 5.13 4.30-5.52 10^6/uL Hemoglobin 14.9 13.3-17.7 g/dL Hematocrit 44 40-54 % Mean Corpuscular Volume 85 80-99 fL Mean Corpuscular Hemoglobin 29 25-34 pg Mean Corpuscular Hemoglobin Concent 34 32-36 g/dL Red Cell Distribution Width 12.7 10.0-14.5 % Platelet Count 245 130-400 10^3/uL Mean Platelet Volume 12.5 H 9.0-12.2 fL Immature Granulocyte % (Auto) 1 % Neutrophils (%) (Auto) 82 H 42-75 % Lymphocytes (%) (Auto) 11 L 12-44 % Monocytes (%) (Auto) 5 0-12 % Eosinophils (%) (Auto) 0 0-10 % Basophils (%) (Auto) 1 0-10 % Neutrophils # (Auto) 13.0 H 1.8-7.8 10^3/uL Lymphocytes # (Auto) 1.7 1.0-4.0 10^3/uL Monocytes # (Auto) 0.8 0.0-1.0 10^3/uL Eosinophils # (Auto) 0.1 0.0-0.3 10^3/uL Basophils # (Auto) 0.1 0.0-0.1 10^3/uL Immature Granulocyte # (Auto) 0.2 H 0.0-0.1 10^3/uL Neutrophils % (Manual) 86 % Lymphocytes % (Manual) 11 % Monocytes % (Manual) 3 % Microcytosis SLIGHT Sodium Level 138 135-145 MMOL/L Potassium Level 4.3 3.6-5.0 MMOL/L Chloride Level 102 98-107 MMOL/L Carbon Dioxide Level 20 L 21-32 MMOL/L Anion Gap 16 H 5-14 MMOL/L Blood Urea Nitrogen 14 7-18 MG/DL Creatinine 1.37 H 0.60-1.30 MG/DL Estimat Glomerular Filtration Rate 55 BUN/Creatinine Ratio 10 Glucose Level 280 H 70-105 MG/DL Calcium Level 10.0 8.5-10.1 MG/DL Corrected Calcium 9.6 8.5-10.1 MG/DL Total Bilirubin 0.7 0.1-1.0 MG/DL Aspartate Amino Transf (AST/SGOT) 30 5-34 U/L Alanine Aminotransferase (ALT/SGPT) 66 H 0-55 U/L Alkaline Phosphatase 90 40-136 U/L C-Reactive Protein High Sensitivity 0.18 0.00-0.50 MG/DL Total Protein 7.5 6.4-8.2 GM/DL Albumin 4.5 3.2-4.5 GM/DL Lipase 32 8-78 U/L Urine Color YELLOW Urine Clarity CLOUDY Urine pH 6.5 5-9 Urine Specific [place] 1.020 1.016-1.022 Urine Protein TRACE H NEGATIVE Urine Glucose (UA) 2+ H NEGATIVE Urine Ketones 1+ H NEGATIVE Urine Nitrite NEGATIVE NEGATIVE Urine Bilirubin NEGATIVE NEGATIVE Urine Urobilinogen 0.2 < = 1.0 MG/DL Urine Leukocyte Esterase NEGATIVE NEGATIVE Urine RBC (Auto) 3+ H NEGATIVE Urine RBC TNTC H /HPF Urine WBC 0-2 /HPF Urine Crystals NONE /LPF Urine Bacteria TRACE /HPF Urine Casts NONE /LPF Urine Mucus SMALL H /LPF Urine Culture Indicated NO (KISHOR FRASER MD) Medications Given in ED Current Medications Medications Dose Ordered Sig/[place] Route Start Time Stop Time Status Last Admin Dose Admin Ketorolac Tromethamine 30 mg ONCE ONCE IVP 10/15/20 03:00 10/15/20 03:01 DC 10/15/20 03:04 30 MG Lactated Ringer's 1,000 ml @ 0 mls/hr Q0M ONCE IV 10/15/20 03:00 10/15/20 03:01 DC 10/15/20 03:04 0 MLS/HR (KISHOR FRASER MD) Vital Signs/I&O 10/15/20 02:54 Temp 36.4 Pulse 69 Resp 26 B/P (MAP) 179/117 (137) Pulse Ox 95 O2 Delivery Room Air (KISHOR FRASER MD) Blood Pressure Mean: 137 Progress Progress Note : Progress Note Patient was treated with IVF and Toradol with resolution of pain. 3 mm ureteral stone seen in the left ureter on CT. Patient was discharged by Dr. Fraser. (AMBER RIBEIRO MD) Progress Note : Time: 06:29 Progress Note Patient resting comfortably. No further pain. explained labs and imaging results. Will send pain and nausea meds. Follow up with Dr forman. return precautions given. (KISHOR FRASER MD) Diagnostic Imaging Diagonstic Imaging: CT Plain Films/CT/US/NM/MRI: abdomen, pelvis Comments NAME: [facility]QU[facility]EL [facility] REC#: [id number] PT STATUS: DEP ER : 1970 PHYSICIAN: AMBER RIBEIRO MD ADMIT DATE: 10/15/20/ER Signed Date of Exam:10/15/20 CT ABD/PELVIS WO(KIDNEY STONE) TECHNIQUE: Unenhanced CT imaging of the abdomen and pelvis was performed. 2-D reformats are created and submitted for interpretation. Automatic exposure controls were utilized to optimize patient dose. INDICATION: Flank pain COMPARISON: 12/29/2009 FINDINGS: Evaluation of the abdominal viscera is mildly limited without contrast. Lower chest: Multifocal groundglass opacities are present in the lung bases. Peritoneum: No free intraperitoneal air or fluid. Liver and biliary system: Liver is enlarged measuring 23 cm and has diffuse hypoattenuation liver is indicative of hepatic steatosis. No focal hepatic lesion is appreciated. The gallbladder is normal. No biliary duct dilation. Spleen and Pancreas: Spleen is normal. Unenhanced pancreas is grossly normal. Adrenals: Normal. tract: Mild left hydronephrosis due to an obstructing 3 mm stone in the mid left ureter. Punctate nonobstructing 1 mm stone in the lower pole of the right kidney. Urinary bladder is unremarkable. Prostate is not enlarged. GI tract: Moderate size hiatal hernia. No bowel obstruction. No pericolonic inflammatory changes. Descending and sigmoid colon diverticulosis without diverticulitis. Appendix is normal. Vasculature and Lymph nodes: Normal caliber aorta. No abdominal or pelvic lymphadenopathy. Musculoskeletal: No concerning osseous lesion. IMPRESSION: 1. Mild left hydronephrosis due to a 3 mm obstructing stone in the mid left ureter. 2. Hepatomegaly and diffuse hepatic steatosis. 3. Findings are in agreement with the preliminary report. Dictated by: Dictated on workstation # [id number] (AMBER RIBEIRO MD) Departure Impression Primary Impression: Kidney stone on left side Disposition: HOME, SELF-CARE Condition: Improved Departure-Patient Inst. Decision time for Depature: 06:26 (KISHOR FRASER MD) Referrals: [facility] (PCP/Family) Primary Care Physician XI SHARMA MD Patient Instructions: Kidney Stones in Adults Add. Discharge Instructions: drink plenty of fluids to stay well hydrated. Use pain medications as needed for pain. Alternate with ibuprofen. Nausea medicines every 8 hours as needed. Flomax for increased urinary flow daily. Follow up with Dr Sharma (Urology) for further management. Return to the ER with any increased or worsening pain, fever, painful urination or any other emergent concerning symptoms. . Scripts Ondansetron (Ondansetron Odt) 4 Mg Tab.rapdis 4 MG PO Q8H for nausea, #15 TAB Prov: KISHOR FRASER MD 10/15/20 Tamsulosin HCl (Flomax) 0.4 Mg Cap 0.4 MG PO DAILY for 14 Days, #14 CAP Prov: KISHOR FRASER MD 10/15/20 Hydrocodone/Acetaminophen (Hydrocodone-Acetamin 5-325 mg) 1 Each Tablet 1 TAB PO Q6H PRN for PAIN-MODERATE (5-7), #15 TAB Prov: KISHOR FRASER MD 10/15/20 Copy Copies To 1: JOSHUA CORDOBA JOSHUA T MD Oct 15, 2020 06:23 KISHOR FRASER MD Oct 15, 2020 06:32
[2020-10-15] MEDS ORDERED: ACHD5005 PO (06:28)
[2020-10-15] MEDS ORDERED: ONDA4TAB11 PO (06:28)
[2020-10-15] MEDS ORDERED: TMSL.4C PO (06:28)
--- NOTE | 2020-10-15 06:44 | Diagnostic Imaging Report ---
CT ABD/PELVIS WO(KIDNEY STONE) TECHNIQUE: Unenhanced CT imaging of the abdomen and pelvis was performed. 2-D reformats are created and submitted for interpretation. Automatic exposure controls were utilized to optimize patient dose. INDICATION: Flank pain COMPARISON: 12/29/2009 FINDINGS: Evaluation of the abdominal viscera is mildly limited without contrast. Lower chest: Multifocal groundglass opacities are present in the lung bases. Peritoneum: No free intraperitoneal air or fluid. Liver and biliary system: Liver is enlarged measuring 23 cm and has diffuse hypoattenuation liver is indicative of hepatic steatosis. No focal hepatic lesion is appreciated. The gallbladder is normal. No biliary duct dilation. Spleen and Pancreas: Spleen is normal. Unenhanced pancreas is grossly normal. Adrenals: Normal. tract: Mild left hydronephrosis due to an obstructing 3 mm stone in the mid left ureter. Punctate nonobstructing 1 mm stone in the lower pole of the right kidney. Urinary bladder is unremarkable. Prostate is not enlarged. GI tract: Moderate size hiatal hernia. No bowel obstruction. No pericolonic inflammatory changes. Descending and sigmoid colon diverticulosis without diverticulitis. Appendix is normal. Vasculature and Lymph nodes: Normal caliber aorta. No abdominal or pelvic lymphadenopathy. Musculoskeletal: No concerning osseous lesion. IMPRESSION: 1. Mild left hydronephrosis due to a 3 mm obstructing stone in the mid left ureter. 2. Hepatomegaly and diffuse hepatic steatosis. 3. Findings are in agreement with the preliminary report. Dictated by: Dictated on workstation # [id number]
== END 2020-10-15 06:50 | disposition home or self-care (01) ==
LOC: EDUNIT# 02:50 → ER 02:52
DX: N13.2 Hydronephrosis with renal and ureteral calculous obstruction (principal); Z86.16 Personal history of COVID-19
CPT/HCPCS: 36415; 74176; 80053; 81000; 83690; 85007; 85027; 86141

== ENCOUNTER → 2020-11-28 | Outpatient (CLI) | payer SELFPAY ==
[~2020-11-28] MED LIST changes: +ACHD5005 PO; +ONDA4TAB11 PO; +TMSL.4C PO
== END ==
LOC: CARD 14:30
PROVIDERS: ATTEND Nurse Practitioner Family
DX: I51.7 Cardiomegaly (principal); Z86.16 Personal history of COVID-19
CPT/HCPCS: 93225; 93226; 93306

== ENCOUNTER 2020-12-04 02:59 | Emergency (ER) | payer SELFPAY ==
[~2020-12-04] VITALS: Ht 177 cm; Wt 133.4 kg
[2020-12-04] MEDS ORDERED: ONDANSETRON 4 MG/2 ML (SDV) Z0FRAN ONE (03:19)
[2020-12-04] MEDS ORDERED: KETOROLAC 30 MG/ML VIAL ONE (03:19)
[2020-12-04 03:20] LABS: BASOPHILS # (AUTO) 0.1 10^3/uL (0.0-0.1); BASOPHILS % (AUTO) 1 % (0-10); EOSINOPHILS # (AUTO) 0.3 10^3/uL (0.0-0.3); EOSINOPHILS % (AUTO) 3 % (0-10); HEMATOCRIT 42 % (40-54); HEMOGLOBIN 14.7 g/dL (13.3-17.7); LYMPHOCYTES # (AUTO) 3.4 10^3/uL (1.0-4.0); LYMPHOCYTES % (AUTO) 34 % (12-44); MEAN CORPUSCULAR HEMOGLOBIN 29 pg (25-34); MEAN CORPUSCULAR HGB CONC 35 g/dL (32-36); MEAN CORPUSCULAR VOLUME 85 fL (80-99); MONOCYTES # (AUTO) 0.8 10^3/uL (0.0-1.0); MONOCYTES % (AUTO) 8 % (0-12); NEUTROPHILS # (AUTO) 5.5 10^3/uL (1.8-7.8); NEUTROPHILS % (AUTO) 54 % (42-75); PLATELET COUNT 228 10^3/uL (130-400)
[2020-12-04 03:21] LABS: BILIRUBIN,URINE NEGATIVE (NEGATIVE); CLARITY,URINE CLEAR; COLOR,URINE YELLOW; GLUCOSE, URINE (UA) 2+ (NEGATIVE); KETONES,URINE NEGATIVE (NEGATIVE); LEUKOCYTE ESTERASE ,URINE NEGATIVE (NEGATIVE); NITRITE,URINE NEGATIVE (NEGATIVE); PH,URINE 5.5 (5-9); PROTEIN,URINE TRACE (NEGATIVE)
--- NOTE | 2020-12-04 03:28 | ED Back Pain ---
General Stated Complaint: POSS KIDNEY STONE Nursing Triage Note: Left side kidney stone pain radiating to bladder x 3 hours. intermittent emesis since then as well. Hx of kidney stones per self report Source of Information: Patient Exam Limitations: No Limitations History of Present Illness Date Seen by Provider: Dec 04, 2020 Time Seen by Provider: 03:03 Initial Comments Patient to the ER by private conveyance from home with chief complaint of left flank pain starting about 3 hours prior to arrival. For the past week he has been having some dysuria and so was taking some cranberry juice and drinking lots of water. He has a history of kidney stones. He is having burning in his bladder but no discharge. No diarrhea. No abdominal surgeries or ureteral surgeries. He tried taking some pain medicine and some lemon grass oil for the pain and promptly vomited these all. Allergies and Home Medications Allergies Coded Allergies: No Known Drug Allergies (Unverified , 08/02/08) Patient Home Medication List Home Medication List Reviewed: Yes Cephalexin (Cephalexin) 500 Mg Tablet, 500 MG PO BID Prescribed by: GREGG CELIS on 12/04/20433 Hydrocodone/Acetaminophen (Hydrocodone-Acetamin 5-325 mg) 1 Each Tablet, 1 TAB PO Q6H PRN for PAIN-MODERATE (5-7) Prescribed by: KISHOR FRASER on 10/15/20 06 Hydrocodone/Acetaminophen (Hydrocodone-Acetamin 5-325 mg) 1 Each Tablet, 1-2 TAB PO Q6H PRN for PAIN-MODERATE (5-7) Prescribed by: GREGG CELIS on 12/04/20 043 Metformin HCl (Metformin HCl) 500 Mg Tablet, 500 MG PO DAILY Prescribed by: DWAYNE BECK on 09/17/20 1230 Ondansetron (Ondansetron Odt) 4 Mg Tab.rapdis, 4 MG PO Q8H Prescribed by: KISHOR FRASER on 10/15/20627 Ondansetron (Ondansetron Odt) 4 Mg Tab.rapdis, 4-8 MG PO Q6H PRN for NAUSEA/VOMITING Prescribed by: GREGG CELIS on 12/04/20 043 Tamsulosin HCl (Flomax) 0.4 Mg Cap, 0.4 MG PO DAILY Prescribed by: KISHOR FRASER on 10/15/20627 Tamsulosin HCl (Flomax) 0.4 Mg Cap, 0.4 MG PO DAILY Prescribed by: GREGG CELIS on 12/04/20 0434 Review of Systems Constitutional: No chills, No malaise EENTM: No ear discharge, No ear pain Respiratory: No cough, No short of breath Cardiovascular: No Hx of Intervention, No palpitations Gastrointestinal: No abdominal pain, No constipation; nausea, vomiting Genitourinary: No dysuria, No frequency Musculoskeletal: back pain (Left); No joint pain Skin: No change in color, No rash Psychiatric/Neurological: Denies Anxiety, Denies Depressed All Other Systems Reviewed Negative Unless Noted: Yes Past Rfkunkq-Ovusnz-Iivcez Hx Patient Social History Tobacco Use?: No Smoking Status: Never a Smoker Smokeless Tobacco Frequency: Never a User Use of E-Cig and/or Vaping dev: No Use of E-Cig and/or Vaping Kyaw: Never a User Substance use?: No Alcohol Use?: No Pt feels they are or have been: No Immunizations Up To Date Tetanus Booster (TDap): Less than 5yrs First/Initial COVID19 Vaccinat: n/a Past Medical History Surgeries: Yes (left forearm laceration) Respiratory: Yes (COVID-19 pneumonia August 2020 requiring oxygen support) Cardiac: No Neurological: No Reproductive Disorders: No Sexually Transmitted Disease: No Genitourinary: Yes Kidney Stones Gastrointestinal: No Musculoskeletal: Yes Gout Endocrine: No Cancer: No Psychosocial: No Integumentary: No Blood Disorders: No Family Medical History No Pertinent Family Hx Physical Exam Vital Signs Vital Signs - First Documented 12/04/20 03:09 Temp 36.0 Pulse 61 Resp 22 B/P (MAP) 166/84 (111) Pulse Ox 97 O2 Delivery Room Air Capillary Refill : Less Than 3 Seconds Height, Weight, BMI Height: 5'10.00" Weight: 260lbs. oz. 117.551547zl; 42.00 BMI Method:Stated General Appearance: WD/WN, Moderate Distress HEENT: Pharynx Normal, Moist Mucous Membranes Neck: Normal Inspection, Non Tender Cardiovascular: Regular Rate, Rhythm, No Murmur Respiratory: Lungs Clear, Normal Breath Sounds, No Accessory Muscle Use, No Respiratory Distress Gastrointestinal: Normal Bowel Sounds, Non Tender, Soft Back: Normal Inspection, CVA Tenderness (L) Extremity: Normal Capillary Refill, Normal Inspection Neurologic/Psychiatric: Alert, Oriented x3, Other (Anxious, painful affect) Skin: Normal Color, Warm/Dry Progress/Results/Core Measures Results/Orders Lab Results Laboratory Tests Test 12/04/20 03:06 Range/Units White Blood Count 10.0 4.3-11.0 10^3/uL Red Blood Count 5.00 4.30-5.52 10^6/uL Hemoglobin 14.7 13.3-17.7 g/dL Hematocrit 42 40-54 % Mean Corpuscular Volume 85 80-99 fL Mean Corpuscular Hemoglobin 29 25-34 pg Mean Corpuscular Hemoglobin Concent 35 32-36 g/dL Red Cell Distribution Width 12.2 10.0-14.5 % Platelet Count 228 130-400 10^3/uL Mean Platelet Volume 12.0 9.0-12.2 fL Immature Granulocyte % (Auto) 1 % Neutrophils (%) (Auto) 54 42-75 % Lymphocytes (%) (Auto) 34 12-44 % Monocytes (%) (Auto) 8 0-12 % Eosinophils (%) (Auto) 3 0-10 % Basophils (%) (Auto) 1 0-10 % Neutrophils # (Auto) 5.5 1.8-7.8 10^3/uL Lymphocytes # (Auto) 3.4 1.0-4.0 10^3/uL Monocytes # (Auto) 0.8 0.0-1.0 10^3/uL Eosinophils # (Auto) 0.3 0.0-0.3 10^3/uL Basophils # (Auto) 0.1 0.0-0.1 10^3/uL Immature Granulocyte # (Auto) 0.1 0.0-0.1 10^3/uL Urine Color YELLOW Urine Clarity CLEAR Urine pH 5.5 5-9 Urine Specific [place] >=1.030 1.016-1.022 Urine Protein TRACE H NEGATIVE Urine Glucose (UA) 2+ H NEGATIVE Urine Ketones NEGATIVE NEGATIVE Urine Nitrite NEGATIVE NEGATIVE Urine Bilirubin NEGATIVE NEGATIVE Urine Urobilinogen 0.2 < = 1.0 MG/DL Urine Leukocyte Esterase NEGATIVE NEGATIVE Urine RBC (Auto) 3+ H NEGATIVE Urine RBC 10-25 H /HPF Urine WBC NONE /HPF Urine Squamous Epithelial Cells RARE /HPF Urine Crystals PRESENT H /LPF Urine Calcium Oxalate Crystals RARE H /LPF Urine Bacteria NEGATIVE /HPF Urine Casts NONE /LPF Urine Mucus SMALL H /LPF Urine Culture Indicated NO Sodium Level 141 135-145 MMOL/L Potassium Level 3.9 3.6-5.0 MMOL/L Chloride Level 103 98-107 MMOL/L Carbon Dioxide Level 22 21-32 MMOL/L Anion Gap 16 H 5-14 MMOL/L Blood Urea Nitrogen 17 7-18 MG/DL Creatinine 1.55 H 0.60-1.30 MG/DL Estimat Glomerular Filtration Rate 48 BUN/Creatinine Ratio 11 Glucose Level 249 H 70-105 MG/DL Calcium Level 9.8 8.5-10.1 MG/DL Corrected Calcium 9.5 8.5-10.1 MG/DL Total Bilirubin 0.4 0.1-1.0 MG/DL Aspartate Amino Transf (AST/SGOT) 24 5-34 U/L Alanine Aminotransferase (ALT/SGPT) 42 0-55 U/L Alkaline Phosphatase 74 40-136 U/L Total Protein 7.1 6.4-8.2 GM/DL Albumin 4.4 3.2-4.5 GM/DL My Orders Orders - GREGG CELIS Ua Culture If Indicated (12/04/20 03:02) Ketorolac Injection (Toradol Injection) (12/04/20 03:30) Ondansetron Injection (Zofran Injectio (12/04/20 03:30) Cbc With Automated Diff (12/04/20 03:16) Comprehensive Metabolic Panel (12/04/20 03:16) Ct Abd/Pelvis Wo(Kidney Stone) (12/04/20 03:16) Ondansetron Injection (Zofran Injectio (12/04/20 03:19) Ketorolac Injection (Toradol Injection) (12/04/20 03:19) Ceftriaxone (Rocephin) (12/04/20 03:30) Abdomen/Kub 1view (12/04/20 03:29) Rx-Ondansetron Po (Rx-Zofran Po) (12/04/20 04:20) Rx-Hydrocodone/Apap 5-325 Mg (Rx-Vicodin (12/04/20 04:30) Medications Given in ED Current Medications Medications Dose Ordered Sig/[place] Route Start Time Stop Time Status Last Admin Dose Admin Acetaminophen/ Hydrocodone Bitart 1 ea Q4H PRN PO 12/04/20 04:30 12/04/20 05:31 DC 12/04/20 04:32 1 EA Ceftriaxone Sodium 1000 mg/ Sterile Water 10 ml @ 200 mls/hr ONCE ONCE IV 12/04/20 03:30 12/04/20 03:32 DC 12/04/20 03:41 200 MLS/HR Ketorolac Tromethamine 30 mg ONCE ONCE IVP 12/04/20 03:30 12/04/20 03:31 DC 12/04/20 03:20 30 MG Ondansetron HCl 8 mg ONCE ONCE IVP 12/04/20 03:30 12/04/20 03:31 DC 12/04/20 03:20 8 MG Vital Signs/I&O 12/04/20 12/04/20 03:09 05:20 Temp 36.0 36.7 Pulse 61 59 Resp 22 18 B/P (MAP) 166/84 (111) 164/96 Pulse Ox 97 98 O2 Delivery Room Air Room Air Blood Pressure Mean: 111 Progress Progress Note : Time: 03:28 Progress Note Suspect kidney stone/UTI. Plan to give him some antibiotics. A septic presentation. Urinalysis CT Toradol and Zofran. Review of the [employer] prescriber database did not reveal any recent concerning prescription patterns. Diagnostic Imaging Diagonstic Imaging: CT Plain Films/CT/US/NM/MRI: abdomen, pelvis Comments 5mm left ureteral calculus at the UVJ. [facility], [place] NAME: GEORGINA ESQUIVEL [facility] REC#: [id number] PT STATUS: REG ER : 1970 PHYSICIAN: GREGG CELIS MD ADMIT DATE: 12/04/20/ER Signed Date of Exam:12/04/20 CT ABD/PELVIS WO(KIDNEY STONE) PROCEDURE: CT urinary tract, rule out kidney stone. TECHNIQUE: Multiple contiguous axial images were obtained through the abdomen and pelvis without the use of intravenous contrast. Auto Exposure Controls were utilized during the CT exam to meet ALARA standards for radiation dose reduction. INDICATION: Left flank pain Lung bases are clear. There is a moderate-sized hiatal hernia. There is fatty infiltration of liver. Gallbladder is unremarkable. Pancreas appears normal. Spleen is not enlarged. Adrenals appear normal. There is a 1 mm calculus in lower pole calyx of the right kidney. Right kidney otherwise unremarkable. There is mild hydronephrosis of left kidney with perinephric edema. There is left ureteral dilatation. There is 5 mm calculus in the distal left ureter near the ureterovesical junction. There is some prostate calcification. Urinary bladder is decompressed. There is diverticulosis of the colon but no evidence of diverticulitis. Small bowel is not dilated. There is no evidence for appendicitis. There is no intraperitoneal free air or free fluid. IMPRESSION: Obstructing calculus distal left ureter causing hydronephrosis of left kidney. Right nephrolithiasis. Hepatic steatosis. Hiatal hernia. Uncomplicated diverticulosis of the colon. Dictated by: Dictated on workstation # [id number] Dict: 12/04/20 0508 Trans: 12/04/20510 TCB [id number] Interpreted by: SONIA HAQ MD Electronically signed by: SONIA HAQ MD 12/04/20510 Reviewed: Reviewed Vanige Dunbar Study, Reviewed by Me Diagonstic Imaging: Xray Plain Films/CT/US/NM/MRI: abdomen, pelvis Comments Unable to ascertain any opacity consistent with a kidney stone. [facility], [place] NAME: GEORGINA ESQUIVEL [facility] REC#: [id number] PT STATUS: DEP ER : 1970 PHYSICIAN: GREGG CELIS MD ADMIT DATE: 12/04/20/ER Draft Date of Exam:12/04/20 ABDOMEN/KUB 1VIEW INDICATION: Low back pain. KUB 4:19 AM FINDINGS: Lung bases are clear. Bowel gas pattern is normal. There are no masses seen. IMPRESSION: No acute abnormalities in the abdomen. Dictated on workstation # [id number] Dict: 12/04/20523 Trans: 12/04/20529 [id number] Interpreted by: SONIA HAQ MD Electronically signed by: Reviewed: Reviewed by Me Departure Impression Primary Impression: Ureteral calculus, left Disposition: 01 HOME, SELF-CARE Condition: Stable Departure-Patient Inst. Decision time for Depature: 05:14 Referrals: [facility] (PCP/Family) Primary Care Physician XI SHARMA MD Patient Instructions: Kidney Stones (DC), How to Strain Your Urine Add. Discharge Instructions: Drink lots of fluids. Tylenol 650 mg every 8 hours as needed for pain. Motrin 800 mg every 8 hours as needed for pain. Heat applied to the back as needed. Hydrocodone 1-2 tablets every 6 hours as necessary for breakthrough pain. Flomax 1 capsule daily until you pass the stones. Ondansetron 1 tablet every 6 hours under the tongue as necessary for nausea and/or vomiting. Keflex 1 capsule twice a day for the next week to treat possible UTI. Strain your urine using the strainer to see when the stones pass. Occasionally stones will break up and not be caught in the strainer. Symptoms should resolve 1 to 2 days after the passing of stones. I suggest you follow-up with Dr. Sharma, urology. Return to the nearest ER if you are having intractable pain and/or nausea, fever etc. Scripts Cephalexin (Cephalexin) 500 Mg Tablet 500 MG PO BID for 7 Days, #14 TAB 0 Refills Prov: GREGG CELIS 12/04/20 Tamsulosin HCl (Flomax) 0.4 Mg Cap 0.4 MG PO DAILY for 7 Days, #7 CAP 0 Refills Prov: GREGG CELIS 12/04/20 Hydrocodone/Acetaminophen (Hydrocodone-Acetamin 5-325 mg) 1 Each Tablet 1-2 TAB PO Q6H PRN for PAIN-MODERATE (5-7), #20 TAB 0 Refills Prov: GREGG CELIS 12/04/20 Ondansetron (Ondansetron Odt) 4 Mg Tab.rapdis 4-8 MG PO Q6H PRN for NAUSEA/VOMITING, #12 TAB 0 Refills Prov: GREGG CELIS 12/04/20 Work/School Note: Work Release Form Date Seen in the Emergency Department: Dec 04, 2020 Return to Work: Dec 08, 2020 Restrictions: No Restrictions Copy Copies To 1: XI SHARMA MD, TITUS J Dec 04, 2020 03:28
[2020-12-04 03:29] LABS: BACTERIA,URINE NEGATIVE /HPF
[2020-12-04 03:30] LABS: ALBUMIN 4.4 GM/DL (3.2-4.5); CALCIUM OXALATE CRYSTALS,UR RARE /LPF; POTASSIUM 3.9 MMOL/L (3.6-5.0); SQUAMOUS EPITHELIAL CELL,UR RARE /HPF
[2020-12-04] MEDS ORDERED: cefTRIAXone 1,000 MG in WATER (STERILE) FOR INJECTION 10 ML IV ONE (03:30)
[2020-12-04] MEDS ORDERED: ONDANSETRON 4 MG/2 ML (SDV) Z0FRAN IVP ONE (03:30)
[2020-12-04] MEDS ORDERED: KETOROLAC 30 MG/ML VIAL IVP ONE (03:30)
[2020-12-04 03:31] LABS: CALCIUM 9.8 MG/DL (8.5-10.1)
[2020-12-04 03:32] LABS: TOTAL PROTEIN 7.1 GM/DL (6.4-8.2)
[2020-12-04 03:34] LABS: BILIRUBIN,TOTAL 0.4 MG/DL (0.1-1.0)
[2020-12-04 03:36] LABS: CREATININE SERUM 1.55 MG/DL (0.60-1.30)
[2020-12-04] MEDS ORDERED: RX-ONDANSETRON 4 MG ODT (ZOFRAN) PPK #4 PO STA (04:20)
[2020-12-04] MEDS ORDERED: ONDA4TAB11 PO ×2 (04:27→04:34)
[2020-12-04] MEDS ORDERED: TMSL.4C PO ×2 (04:27→04:34)
[2020-12-04] MEDS ORDERED: ACHD5005 PO ×2 (04:27→04:34)
[2020-12-04] MEDS ORDERED: CEPH500T PO ×2 (04:27→04:34)
--- NOTE | 2020-12-04 05:12 | Diagnostic Imaging Report ---
PROCEDURE: CT urinary tract, rule out kidney stone. TECHNIQUE: Multiple contiguous axial images were obtained through the abdomen and pelvis without the use of intravenous contrast. Auto Exposure Controls were utilized during the CT exam to meet ALARA standards for radiation dose reduction. INDICATION: Left flank pain Lung bases are clear. There is a moderate-sized hiatal hernia. There is fatty infiltration of liver. Gallbladder is unremarkable. Pancreas appears normal. Spleen is not enlarged. Adrenals appear normal. There is a 1 mm calculus in lower pole calyx of the right kidney. Right kidney otherwise unremarkable. There is mild hydronephrosis of left kidney with perinephric edema. There is left ureteral dilatation. There is 5 mm calculus in the distal left ureter near the ureterovesical junction. There is some prostate calcification. Urinary bladder is decompressed. There is diverticulosis of the colon but no evidence of diverticulitis. Small bowel is not dilated. There is no evidence for appendicitis. There is no intraperitoneal free air or free fluid. IMPRESSION: Obstructing calculus distal left ureter causing hydronephrosis of left kidney. Right nephrolithiasis. Hepatic steatosis. Hiatal hernia. Uncomplicated diverticulosis of the colon. Dictated by: Dictated on workstation # [id number]
[2020-12-04 05:20] VITALS: BP 164/96
--- NOTE | 2020-12-04 05:32 | Diagnostic Imaging Report ---
INDICATION: Low back pain. KUB 4:19 AM FINDINGS: Lung bases are clear. Bowel gas pattern is normal. There are no masses seen. IMPRESSION: No acute abnormalities in the abdomen. Dictated by: Dictated on workstation # [id number]
== END 2020-12-04 05:20 | disposition home or self-care (01) ==
LOC: EDUNIT# 02:59 → ER 03:01
DX: N13.2 Hydronephrosis with renal and ureteral calculous obstruction (principal)
CPT/HCPCS: 36415; 74018; 74176; 80053; 81000; 85025